=== PATIENT | female | born 1930 | race Caucasian/White ===

== ENCOUNTER 2016-07-20 17:52 | Inpatient (IN) | payer MEDICARE ==
[~2016-07-20] VITALS: Ht 162.6 cm; Wt 57.2 kg
--- NOTE | 2016-07-20 18:38 | PHYS DOC ---
Past History Past Medical History: Diabetes Past Medical History CRF Past Surgical History: Hysterectomy, Pacemaker Smoking: Quit Greater Than 1 Year Social History Narrative: Lives at [facility] Adult General Chief Complaint Chief Complaint: PSYCH EVALUATION HPI HPI Patient is a 86 year old female who presents with anna-psych evaluation prior to admission. She became agitated there at the [facility] and was trying to leave. She presents here for medical clearance. She is here with her brother. She has no complaints presently and is pleasant and cooperative. Review of Systems Review of Systems Constitutional: Denies fever or chills Eyes: Denies change in visual acuity, redness, or eye pain HENT: Denies nasal congestion or sore throat Respiratory: Denies cough or shortness of breath Cardiovascular: No additional information not addressed in HPI. No chest pain GI: Denies abdominal pain, nausea, vomiting, bloody stools or diarrhea : Denies dysuria or hematuria Musculoskeletal: Denies back pain or joint pain Integument: Denies rash or skin lesions Neurologic: Denies headache, focal weakness or sensory changes Endocrine: Denies polyuria or polydipsia Physical Exam Physical Exam Constitutional: Well developed, well nourished, no acute distress, non-toxic appearance. HENT: Normocephalic, atraumatic, bilateral external ears normal, oropharynx moist, no oral exudates, nose normal. Eyes: PERRLA, EOMI, conjunctiva normal, no discharge. Neck: Normal range of motion, no tenderness, supple, no stridor. Cardiovascular:Heart rate regular rhythm, no murmur Lungs & Thorax: Bilateral breath sounds clear to auscultation Abdomen: Bowel sounds normal, soft, no tenderness, no masses, no pulsatile masses. Skin: Warm, dry, no erythema, no rash. Back: No tenderness, no CVA tenderness. Extremities: No tenderness, no cyanosis, no clubbing, ROM intact, no edema. Neurologic: Alert and oriented X 3, normal motor function, normal sensory function, no focal deficits noted. Psychologic: Affect normal, judgement normal, mood normal. Pleasant and cooperative Current Patient Data Vital Signs Vital Signs Date Time Temp Pulse Resp B/P (MAP) Pulse Ox O2 Delivery O2 Flow Rate FiO2 07/20/16 21:15 98.2 82 20 169/65 (99) 97 07/20/16 20:50 Room Air Lab Results Laboratory Tests Test 07/20/16 18:05 07/20/16 19:10 Urine Collection Type Unknown Urine Color Yellow Urine Clarity Hazy Urine pH 7.0 Urine Specific [place] 1.020 Urine Protein 30 mg/dl Urine Glucose (UA) 500 mg/dL Urine Ketones (Stick) Neg mg/dL Urine Blood Trace Urine Nitrite Neg Urine Bilirubin Neg Urine Urobilinogen Dipstick 2 mg/dL Urine Leukocyte Esterase Neg Urine RBC 3-5 /HPF Urine WBC 5-10 /HPF Urine Squamous Epithelial Cells Many /LPF Urine Bacteria 0 /HPF White Blood Count 5.1 x10^3/uL Red Blood Count 3.33 x10^6/uL Hemoglobin 9.3 g/dL Hematocrit 27.1 % Mean Corpuscular Volume 82 fL Mean Corpuscular Hemoglobin 28 pg Mean Corpuscular Hemoglobin Concent 35 g/dL Red Cell Distribution Width 13.9 % Platelet Count 174 x10^3/uL Neutrophils (%) (Auto) 60 % Lymphocytes (%) (Auto) 25 % Monocytes (%) (Auto) 12 % Eosinophils (%) (Auto) 3 % Basophils (%) (Auto) 1 % Neutrophils # (Auto) 3.0 x10^3uL Lymphocytes # (Auto) 1.3 x10^3/uL Monocytes # (Auto) 0.6 x10^3/uL Eosinophils # (Auto) 0.1 x10^3/uL Basophils # (Auto) 0.1 x10^3/uL Sodium Level 144 mmol/L Potassium Level 4.0 mmol/L Chloride Level 107 mmol/L Carbon Dioxide Level 27 mmol/L Anion Gap 10 Blood Urea Nitrogen 30 mg/dL Creatinine 1.5 mg/dL Estimated GFR (Cockcroft-Gault) 33.1 BUN/Creatinine Ratio 20 Glucose Level 214 mg/dL Calcium Level 8.8 mg/dL Magnesium Level 2.1 mg/dL Total Bilirubin 0.6 mg/dL Aspartate Amino Transf (AST/SGOT) 15 U/L Alanine Aminotransferase (ALT/SGPT) 20 U/L Alkaline Phosphatase 51 U/L Total Protein 7.2 g/dL Albumin 3.3 g/dL Albumin/Globulin Ratio 0.8 Course & Med Decision Making Course & Med Decision Making Pertinent Labs and Imaging studies reviewed. (See chart for details) Reviewed the laboratory data. There is no acute abnormality may be a factor in her behavioral issue. Patient is medically cleared for admission. Dragon Disclaimer Dragon Disclaimer This chart was dictated in whole or in part using Voice Recognition software in a busy, high-work load, and often noisy Emergency Department environment. It may contain unintended and wholly unrecognized errors or omissions. Departure Departure: Disposition: 65 XFER TO PSYCH HOSP/UNIT Condition: GOOD Referrals: NON,STAFF (PCP) MARILYN JARAMILLO MD July 20, 2016 18:38
[2016-07-20 19:02] LABS: BILIRUBIN,URINE NEG (NEG); CLARITY,URINE HAZY; COLOR,URINE YELLOW; GLUCOSE,URINE 500 mg/dL (NEG); NITRITE,URINE NEG (NEG); UROBILINOGEN,URINE 2 mg/dL (0.2 mg/dL)
[2016-07-20 19:03] LABS: BACTERIA,URINE 0 /HPF (0-FEW); SQUAMOUS EPITHELIAL CELL,UR MANY /LPF
[2016-07-20 19:23] LABS: BASO # 0.1 x10^3/uL (0.0-0.2); BASO % 1 % (0-3); EOS # 0.1 x10^3/uL (0.0-0.7); EOS % 3 % (0-3); HEMATOCRIT 27.1 % (36.0-47.0); HEMOGLOBIN 9.3 g/dL (12.0-15.5); LYMPH # 1.3 x10^3/uL (1.0-4.8); LYMPH % 25 % (24-48); MEAN CORPUSCULAR HEMOGLOBIN 28 pg (25-35); MEAN CORPUSCULAR HGB CONC 35 g/dL (31-37); MEAN CORPUSCULAR VOLUME 82 fL (79-100); MONO # 0.6 x10^3/uL (0.0-1.1); MONO % 12 % (0-9); NEUT % 60 % (31-73); PLATELET COUNT 174 x10^3/uL (140-400); RED BLOOD COUNT 3.33 x10^6/uL (3.50-5.40); RED CELL DISTRIBUTION WIDTH 13.9 % (11.5-14.5); WHITE BLOOD COUNT 5.1 x10^3/uL (4.0-11.0)
[2016-07-20 19:34] LABS: ALBUMIN 3.3 g/dL (3.4-5.0); ALBUMIN/GLOBULIN RATIO 0.8 (1.0-1.7); CALCIUM 8.8 mg/dL (8.5-10.1); CREATININE 1.5 mg/dL (0.6-1.0); GFR 33.1; MAGNESIUM 2.1 mg/dL (1.8-2.4); TOTAL BILIRUBIN 0.6 mg/dL (0.2-1.0); TOTAL PROTEIN 7.2 g/dL (6.4-8.2)
--- NOTE | 2016-07-20 21:01 | PDOC ---
Exam Saúl Demential Exam: Saúl Note: Please also refer to the separate dictated note~for this date of service dictated separately.~Patient seen individually. Discussed the patient with Nursing staff reviewed the chart.~Reviewed interim history and current functioning. Reviewed vital signs,~Labs/ Radiology~and current medications noted below. Continue current treatment with the changes noted in the dictated addendum note Assessment: Vital Signs: Vital Signs Date Time Temp Pulse Resp B/P (MAP) Pulse Ox O2 Delivery O2 Flow Rate FiO2 07/20/16 20:50 98.5 72 20 144/66 (92) 97 Room Air Labs: Laboratory Tests Test 07/20/16 18:05 07/20/16 19:10 Urine Collection Type Unknown Urine Color Yellow Urine Clarity Hazy Urine pH 7.0 Urine Specific [place] 1.020 Urine Protein 30 mg/dl (NEG-TRACE) Urine Glucose (UA) 500 mg/dL (NEG) Urine Ketones (Stick) Neg mg/dL (NEG) Urine Blood Trace (NEG) Urine Nitrite Neg (NEG) Urine Bilirubin Neg (NEG) Urine Urobilinogen Dipstick 2 mg/dL (0.2 mg/dL) Urine Leukocyte Esterase Neg (NEG) Urine RBC 3-5 /HPF (0-2) Urine WBC 5-10 /HPF (0-4) Urine Squamous Epithelial Cells Many /LPF Urine Bacteria 0 /HPF (0-FEW) White Blood Count 5.1 x10^3/uL (4.0-11.0) Red Blood Count 3.33 x10^6/uL (3.50-5.40) L Hemoglobin 9.3 g/dL (12.0-15.5) L Hematocrit 27.1 % (36.0-47.0) L Mean Corpuscular Volume 82 fL (79-100) Mean Corpuscular Hemoglobin 28 pg (25-35) Mean Corpuscular Hemoglobin Concent 35 g/dL (31-37) Red Cell Distribution Width 13.9 % (11.5-14.5) Platelet Count 174 x10^3/uL (140-400) Neutrophils (%) (Auto) 60 % (31-73) Lymphocytes (%) (Auto) 25 % (24-48) Monocytes (%) (Auto) 12 % (0-9) H Eosinophils (%) (Auto) 3 % (0-3) Basophils (%) (Auto) 1 % (0-3) Neutrophils # (Auto) 3.0 x10^3uL (1.8-7.7) Lymphocytes # (Auto) 1.3 x10^3/uL (1.0-4.8) Monocytes # (Auto) 0.6 x10^3/uL (0.0-1.1) Eosinophils # (Auto) 0.1 x10^3/uL (0.0-0.7) Basophils # (Auto) 0.1 x10^3/uL (0.0-0.2) Sodium Level 144 mmol/L (136-145) Potassium Level 4.0 mmol/L (3.5-5.1) Chloride Level 107 mmol/L (98-107) Carbon Dioxide Level 27 mmol/L (21-32) Anion Gap 10 (6-14) Blood Urea Nitrogen 30 mg/dL (7-20) H Creatinine 1.5 mg/dL (0.6-1.0) H Estimated GFR (Cockcroft-Gault) 33.1 BUN/Creatinine Ratio 20 (6-20) Glucose Level 214 mg/dL (70-99) H Calcium Level 8.8 mg/dL (8.5-10.1) Magnesium Level 2.1 mg/dL (1.8-2.4) Total Bilirubin 0.6 mg/dL (0.2-1.0) Aspartate Amino Transferase (AST) 15 U/L (15-37) Alanine Aminotransferase (ALT) 20 U/L (14-59) Alkaline Phosphatase 51 U/L (46-116) Total Protein 7.2 g/dL (6.4-8.2) Albumin 3.3 g/dL (3.4-5.0) L Albumin/Globulin Ratio 0.8 (1.0-1.7) L MAIKEL CHAPMAN MD July 20, 2016 21:01
[2016-07-20 21:15] VITALS: BP 169/65
[2016-07-20] MEDS ORDERED: MAG HYDROX/AL HYDROX/SIMETH 30 ML ORAL.SUSP PO PRN (21:45)
[2016-07-20] MEDS ORDERED: MAGNESIUM HYDROXIDE 2,400 MG/30 ML ORAL.SUSP. PO PRN (21:45)
[2016-07-20] MEDS ORDERED: ACETAMINOPHEN 325 MG TABLET PO PRN (21:45)
[2016-07-20] MEDS ORDERED: METHYL SALICYLATE/MENTHOL TOPICAL OINTMENT 29GM TUBE. TP PRN (21:45)
[2016-07-20] MEDS ORDERED: LISI10TA2 PO (21:58)
[2016-07-20] MEDS ORDERED: LORA0.5T PO (21:58)
[2016-07-20] MEDS ORDERED: AMLO10TA2 PO (21:58)
[2016-07-20] MEDS ORDERED: ACET325T9 PO (21:58)
[2016-07-20] MEDS ORDERED: QUET50TA5 PO (21:58)
[2016-07-20] MEDS ORDERED: RIVA3CAP4 PO (21:58)
[2016-07-21 05:51] VITALS: BP 137/58
--- NOTE | 2016-07-21 06:33 | EKG ---
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
[2016-07-21] MEDS ORDERED: ACETAMINOPHEN 325 MG TABLET PO PRN (07:45)
[2016-07-21] MEDS: LISINOPRIL 10 MG TABLET PO SCH (09:13)
[2016-07-21] MEDS: amLODIPine BESYLATE 10 MG TABLET PO SCH (09:13)
[2016-07-21] MEDS: RIVASTIGMINE 3 MG CAPSULE. PO SCH ×2 (09:13→20:21)
[2016-07-21 14:46] LABS: THYROID STIM HORMONE (TSH) 1.095 uIU/mL (0.358-3.740)
--- NOTE | 2016-07-21 15:06 | HP ---
ADMIT DATE: 07/20/2016 REASON FOR ADMISSION TO THE SENIOR BEHAVIORAL UNIT: This is an 86-year-old female, who came from [facility], where it is reported that she has had increased agitation, exit-seeking to go to [facility], taking things from other residents, throwing her at staff and stating her son was going to come up with a gun to kill them. Medication changes include increasing her Exelon and Seroquel and prescribing Ativan. PAST MEDICAL HISTORY: Hyperlipidemia, GERD, hypertension, Cárdenas esophagus, thrombocytopenia, pacemaker, dementia and type 2 diabetes. MEDICATIONS: Reviewed: Her Exelon was increased from 1.5 mg b.i.d. to 3 mg p.o. b.i.d., Seroquel was increased to 50 mg at bedtime from 25 and lorazepam was added on 07/15/2016 0.5 mg p.o. b.i.d. p.r.n. anxiety. Her other medications were reviewed as well. PERSONAL HABITS: Unknown. The patient stated that she did not have any information that I could need. SOCIAL HISTORY: Tobacco none and never smoked. REVIEW OF SYSTEMS: The patient basically answered no. OBJECTIVE: VITAL SIGNS: Blood pressure is 137/58, respirations 18, temperature 97.7 and O2 sat 98% on room air. Height 64 inches, weight 132.44 pounds. GENERAL: An 86-year-old, who is annoyed being with the interview. HEENT: Her TMs were intact bilaterally. Her pupils were equal, round, and reactive to light. Extraocular muscles are intact. Her nose was patent. Her throat was clear. Her tongue was midline without fasciculations. NECK: Supple, without adenopathy. LUNGS: Clear to auscultation. CARDIOVASCULAR: Regular rhythm and rate with a 1-2/6 systolic murmur heard in the pulmonic area. ABDOMEN: Soft, nontender. EXTREMITIES: Without edema. NEUROLOGIC: Cranial nerves were intact. Reflexes 2+/4. Gait, passes get get-up and go test. LABORATORY DATA: Hemoglobin 9.3, hematocrit 27.1. BUN is 30, creatinine is 1.5. Urinalysis is contaminated specimen. ASSESSMENT: 1. An 86-year-old with neurocognitive impairment. 2. Normochromic normocytic anemia. 3. Hypertension. 4. Hyperlipidemia. 5. Type 2 diabetes. 6. Pacemaker status. 7. Mild protein malnutrition. 8. Abnormal BUN and creatinine, unknown whether this is chronic kidney disease. PLAN: Follow along with Dr. Crain, repeat labs in a week. ISABELLA FATIMA DO DR: SHAYNA/slim JOB#: [id number] / [id number]
[2016-07-21] MEDS: LORazepam 0.5 MG TABLET PO PRN (15:41)
[2016-07-21 20:11] LABS: T3 TOTAL 105 ng/dL (71-180); THYROXINE 8.6 ug/dL (4.5-12.0)
[2016-07-21] MEDS: risperiDONE ORAL 1 MG/ML 30ml BOTTLE. SL SCH (20:21)
[2016-07-21] MEDS ORDERED: QUEtiapine 50 MG TABLET. PO SCH (21:00)
--- NOTE | 2016-07-21 21:03 | PDOC ---
Exam Saúl Demential Exam: Saúl Note: Please also refer to the separate dictated note~for this date of service dictated separately.~Patient seen individually. Discussed the patient with Nursing staff reviewed the chart.~Reviewed interim history and current functioning. Reviewed vital signs,~Labs/ Radiology~and current medications noted below. Continue current treatment with the changes noted in the dictated addendum note Assessment: Vital Signs: Vital Signs Date Time Temp Pulse Resp B/P (MAP) Pulse Ox O2 Delivery O2 Flow Rate FiO2 07/21/16 09:13 68 137/58 07/21/16 05:51 97.7 18 98 07/20/16 20:50 Room Air Current Medications: Meds: Current Medications Acetaminophen (Tylenol) 650 mg PRN Q6HRS PRN PO PAIN / TEMP; Start 07/20/16 at 21:45 Multi-Ingredient Ointment (Analgesic [place]) 1 swati PRN QID PRN TP MUSCLE PAIN; Start 07/20/16 at 21:45 Al Hydroxide/Mg Hydroxide (Mylanta Plus Xs) 15 ml PRN AFTMEALHC PRN PO DYSPEPSIA; Start 07/20/16 at 21:45 Magnesium Hydroxide (Milk Of Magnesia) 2,400 mg PRN QHS PRN PO CONSTIPATION; Start 07/20/16 at 21:45 Lorazepam (Ativan) 0.5 mg PRN BID PRN PO ANXIETY / AGITATION Last administered on 07/21/16 15:41; Start 07/20/16 at 22:15 Quetiapine Fumarate (SEROquel) 50 mg QHS PO ; Start 07/21/16 at 21:00; Stop at 21:00; Status DC Rivastigmine Tartrate (Exelon) 3 mg BID PO Last administered on 07/21/16 09:13 ; Start 07/21/16 at 09:00 Acetaminophen (Tylenol) 650 mg PRN Q4HRS PRN PO PAIN; Start 07/21/16 at 07:45; Stop 07/21/16 at 07:49; Status DC Amlodipine Besylate (Norvasc) 10 mg DAILY PO Last administered on 07/21/16 09: 13; Start 07/21/16 at 09:00 Lisinopril (Prinivil) 10 mg DAILY PO Last administered on 07/21/16 09:13; Start 07/21/16 at 09:00 Sertraline HCl (Zoloft) 25 mg DAILY PO ; Start 07/22/16 at 09:00 Risperidone (Risperdal) 0.25 mg BID SL Last administered on 07/21/16 20:21; Start 07/21/16 at 21:00 Olanzapine (Zyprexa Zydis) 2.5 mg PRN Q2HR PRN PO ANXIETY / AGITATION; Start at 18:15 Active Scripts Active Reported Lorazepam 0.5 Mg Tablet 0.5 Mg PO PRN BID Tylenol (Acetaminophen) 325 Mg Tablet 650 Mg PO PRN Q4HRS PRN Amlodipine Besylate 10 Mg Tablet 10 Mg PO DAILY Lisinopril 10 Mg Tablet 10 Mg PO DAILY Seroquel (Quetiapine Fumarate) 50 Mg Tablet 50 Mg PO QHS Rivastigmine (Rivastigmine Tartrate) 3 Mg Capsule 3 Mg PO BID MAIKEL CHAPMAN MD July 21, 2016 21:03
[2016-07-22 06:06] VITALS: BP 129/64
[2016-07-22 06:09] LABS: HEMOGLOBIN A1C 6.5 % (4.8-5.6)
[2016-07-22] MEDS: amLODIPine BESYLATE 10 MG TABLET PO SCH (08:28)
[2016-07-22] MEDS: LISINOPRIL 10 MG TABLET PO SCH (08:28)
[2016-07-22] MEDS: RIVASTIGMINE 3 MG CAPSULE. PO SCH ×2 (09:26→20:39)
[2016-07-22] MEDS: SERTRALINE 25 MG TABLET. PO SCH (09:33)
[2016-07-22] MEDS: risperiDONE ORAL 1 MG/ML 30ml BOTTLE. SL SCH ×2 (09:34→19:15)
--- NOTE | 2016-07-22 10:55 | HP ---
ADMIT DATE: 07/21/2016 PSYCHIATRIC ADMISSION HISTORY/EVALUATION IDENTIFYING DATA: The patient is an 86-year-old female referred from [place], [place] by Dr. Danica Bragg, primary care physician. On account of worsening confusion, increased agitation, exit seeking from the assisted living wanting to get back to [place]. She has been taking things from other residents through a jacket and the staff member threatening that her sons will bring a gun and kill people. Multiple changes in her psychotropic medications including increase of Exelon and increase of Seroquel, addition of Ativan have all failed to control the behaviors, which were deemed dangerous, out of control at the assisted living thus resulting in this referral. CHIEF COMPLAINT: "Did you buy this place. I own this place now. I don't want to have anything to do with you." The patient was agitated, restless, constantly walking up and down the hallway as I followed her as part of the assessment. HISTORY OF PRESENT ILLNESS: The patient has a history of dementia, Alzheimer's vascular type. Despite this, she has been reasonably cognitively intact to be staying at hospital for special care. More recently, she has been increasingly psychotic, having sleep and appetite changes, agitated. Reportedly, she had been living in [place] with her , who in March of this year and then she transferred to [facility]. The Memorial ceremony for her was last week and since then her behaviors and confusion have worsened markedly. In addition to the above she has been argumentative, trying to pore water on staff members, cursing at staff. No clear symptoms of bipolar disorder, suicidal or homicidal ideation. While on the unit, she has been sundowning, sarcastic, combative in the [facility] where she had to be placed for a period of time to reduce stimulation from other patients. PAST PSYCHIATRIC HISTORY: As above. MEDICAL HISTORY: Hyperlipidemia, hypertension, GERD, Cárdenas's esophagus, thrombocytopenia, pacemaker in place, diabetes mellitus type 2, Accu-Cheks a.c. and at bedtime Wednesday, Wednesday, Wednesday. Diet: Regular, ambulates ad didi. DRUG ALLERGIES: Negative. CURRENT PSYCHOTROPICS: Exelon 3 mg b.i.d., Seroquel 50 mg at bedtime, Ativan 0.5 b.i.d. p.r.n. FAMILY HISTORY: Noncontributory. SOCIAL HISTORY: The patient's in March of this year. No alcohol, drug abuse, physical, sexual or elder abuse history is noted. She is not known to be a perpetrator. MENTAL STATUS EXAMINATION: The patient was seen individually evening of 07/21/2016. She is oriented to herself, anxious, restless, paranoid, delusional, irritable, labile as I met with her. Insight, judgment, recent and remote memory, attention, concentration, fund of knowledge poor, consistent with her diagnoses mentioned in my initial note. VITAL SIGNS: Temperature 97.7, BP , respirations 18. REVIEW OF SYSTEMS: No CV, , eye, ENT or pulmonary system symptoms on review. Reliability poor. IMPRESSION: Major neurocognitive disorder, Alzheimer, vascular with depression, delusion, behavioral disturbance; anxiety disorder, unspecified; impulse control disorder, unspecified. Rest diagnoses unchanged as above. UA was completed . Culture and sensitivity is pending. PLAN: Admit to the geropsychiatry unit at [facility]. I will see the patient daily individually from a psychiatric standpoint. Request medical followup with Dr. Reddy/Dr. Gonzalez. Await UA culture and sensitivity, treat as indicated. Continue the patient on her current psychotropics, but given the extent of her delusions we will change the Seroquel to Risperdal liquid 0.25 mg twice a day and add Zyprexa 2.5 mg q.2 hours p.r.n. psychosis, agitation, max 7.5 in 24 hours. Maintain Exelon along with Ativan p.r.n. for now. MAIKEL CHAPMAN MD DR: ARLINE/slim JOB#: [id number] / [id number]
[2016-07-22 16:07] VITALS: BP 154/76
--- NOTE | 2016-07-22 20:35 | PDOC ---
Exam Saúl Demential Exam: Saúl Note: Please also refer to the separate dictated note~for this date of service dictated separately.~Patient seen individually. Discussed the patient with Nursing staff reviewed the chart.~Reviewed interim history and current functioning. Reviewed vital signs,~Labs/ Radiology~and current medications noted below. Continue current treatment with the changes noted in the dictated addendum note Assessment: Vital Signs: Vital Signs Date Time Temp Pulse Resp B/P (MAP) Pulse Ox O2 Delivery O2 Flow Rate FiO2 07/22/16 16:07 97.9 79 16 154/76 (102) 99 07/20/16 20:50 Room Air I&O Intake and Output 07/22/16 07:00 Intake Total 600 ml Balance 600 ml Intake Oral 600 ml Labs: Laboratory Tests Test 07/22/16 07:39 07/22/16 11:28 Glucose (Fingerstick) 134 mg/dL (70-99) H 248 mg/dL (70-99) H Current Medications: Meds: Current Medications Acetaminophen (Tylenol) 650 mg PRN Q6HRS PRN PO PAIN / TEMP; Start 07/20/16 at 21:45 Multi-Ingredient Ointment (Analgesic [place]) 1 swati PRN QID PRN TP MUSCLE PAIN; Start 07/20/16 at 21:45 Al Hydroxide/Mg Hydroxide (Mylanta Plus Xs) 15 ml PRN AFTMEALHC PRN PO DYSPEPSIA; Start 07/20/16 at 21:45 Magnesium Hydroxide (Milk Of Magnesia) 2,400 mg PRN QHS PRN PO CONSTIPATION; Start 07/20/16 at 21:45 Lorazepam (Ativan) 0.5 mg PRN BID PRN PO ANXIETY / AGITATION Last administered on 07/21/16 15:41; Start 07/20/16 at 22:15 Quetiapine Fumarate (SEROquel) 50 mg QHS PO ; Start 07/21/16 at 21:00; Stop at 21:00; Status DC Rivastigmine Tartrate (Exelon) 3 mg BID PO Last administered on 07/22/16 09:26 ; Start 07/21/16 at 09:00 Acetaminophen (Tylenol) 650 mg PRN Q4HRS PRN PO PAIN; Start 07/21/16 at 07:45; Stop 07/21/16 at 07:49; Status DC Amlodipine Besylate (Norvasc) 10 mg DAILY PO Last administered on 07/21/16 09: 13; Start 07/21/16 at 09:00 Lisinopril (Prinivil) 10 mg DAILY PO Last administered on 07/21/16 09:13; Start 07/21/16 at 09:00 Sertraline HCl (Zoloft) 25 mg DAILY PO Last administered on 07/22/16 09:33; Start 07/22/16 at 09:00 Risperidone (Risperdal) 0.25 mg BID SL Last administered on 07/22/16 19:15; Start 07/21/16 at 21:00 Olanzapine (Zyprexa Zydis) 2.5 mg PRN Q2HR PRN PO ANXIETY / AGITATION Last administered on 07/22/16 19:13; Start 07/21/16 at 18:15 Mirtazapine (Remeron) 7.5 mg QHS PO ; Start 07/22/16 at 21:00 Active Scripts Active Reported Lorazepam 0.5 Mg Tablet 0.5 Mg PO PRN BID Tylenol (Acetaminophen) 325 Mg Tablet 650 Mg PO PRN Q4HRS PRN Amlodipine Besylate 10 Mg Tablet 10 Mg PO DAILY Lisinopril 10 Mg Tablet 10 Mg PO DAILY Seroquel (Quetiapine Fumarate) 50 Mg Tablet 50 Mg PO QHS Rivastigmine (Rivastigmine Tartrate) 3 Mg Capsule 3 Mg PO BID MAIKEL CHAPMAN MD July 22, 2016 20:35
[2016-07-22] MEDS ORDERED: MIRTAZAPINE 7.5 MG TABLET. PO SCH (21:00)
[2016-07-23 05:46] VITALS: BP 152/72
[2016-07-23] MEDS: RIVASTIGMINE 3 MG CAPSULE. PO SCH ×2 (09:40→19:37)
[2016-07-23] MEDS: SERTRALINE 25 MG TABLET. PO SCH (09:40)
[2016-07-23] MEDS: amLODIPine BESYLATE 10 MG TABLET PO SCH (09:40)
[2016-07-23] MEDS: LISINOPRIL 10 MG TABLET PO SCH (09:40)
[2016-07-23] MEDS: risperiDONE ORAL 1 MG/ML 30ml BOTTLE. SL SCH ×2 (09:42→19:38)
[2016-07-23 15:47] VITALS: BP 120/56
[2016-07-23] MEDS: LORazepam 0.5 MG TABLET PO PRN (17:26)
[2016-07-23] MEDS: MIRTAZAPINE 15 MG TABLET PO SCH (19:41)
[2016-07-23] MEDS: traZODone 50 MG TABLET. PO PRN (19:41)
--- NOTE | 2016-07-23 21:01 | PDOC ---
Exam Saúl Demential Exam: Saúl Note: Please also refer to the separate dictated note~for this date of service dictated separately.~Patient seen individually. Discussed the patient with Nursing staff reviewed the chart.~Reviewed interim history and current functioning. Reviewed vital signs,~Labs/ Radiology~and current medications noted below. Continue current treatment with the changes noted in the dictated addendum note Assessment: Vital Signs: Vital Signs Date Time Temp Pulse Resp B/P (MAP) Pulse Ox O2 Delivery O2 Flow Rate FiO2 07/23/16 15:47 98.1 88 20 120/56 (77) 98 07/20/16 20:50 Room Air I&O Intake and Output 07/23/16 07:00 Intake Total 1080 ml Balance 1080 ml Intake Oral 1080 ml # Voids 2 Labs: Laboratory Tests Test 07/23/16 07:07 Glucose (Fingerstick) 169 mg/dL (70-99) H Current Medications: Meds: Current Medications Acetaminophen (Tylenol) 650 mg PRN Q6HRS PRN PO PAIN / TEMP; Start 07/20/16 at 21:45 Multi-Ingredient Ointment (Analgesic [place]) 1 swati PRN QID PRN TP MUSCLE PAIN; Start 07/20/16 at 21:45 Al Hydroxide/Mg Hydroxide (Mylanta Plus Xs) 15 ml PRN AFTMEALHC PRN PO DYSPEPSIA; Start 07/20/16 at 21:45 Magnesium Hydroxide (Milk Of Magnesia) 2,400 mg PRN QHS PRN PO CONSTIPATION; Start 07/20/16 at 21:45 Lorazepam (Ativan) 0.5 mg PRN BID PRN PO ANXIETY / AGITATION Last administered on 07/23/16 17:26; Start 07/20/16 at 22:15 Quetiapine Fumarate (SEROquel) 50 mg QHS PO ; Start 07/21/16 at 21:00; Stop at 21:00; Status DC Rivastigmine Tartrate (Exelon) 3 mg BID PO Last administered on 07/23/16 19:37 ; Start 07/21/16 at 09:00 Acetaminophen (Tylenol) 650 mg PRN Q4HRS PRN PO PAIN; Start 07/21/16 at 07:45; Stop 07/21/16 at 07:49; Status DC Amlodipine Besylate (Norvasc) 10 mg DAILY PO Last administered on 07/23/16 09: 40; Start 07/21/16 at 09:00 Lisinopril (Prinivil) 10 mg DAILY PO Last administered on 07/23/16 09:40; Start 07/21/16 at 09:00 Sertraline HCl (Zoloft) 25 mg DAILY PO Last administered on 07/23/16 09:40; Start 07/22/16 at 09:00 Risperidone (Risperdal) 0.25 mg BID SL Last administered on 07/23/16 19:38; Start 07/21/16 at 21:00 Olanzapine (Zyprexa Zydis) 2.5 mg PRN Q2HR PRN PO ANXIETY / AGITATION Last administered on 07/23/16 09:42; Start 07/21/16 at 18:15 Mirtazapine (Remeron) 7.5 mg QHS PO Last administered on 07/22/16 20:39; Start 07/22/16 at 21:00; Stop 07/23/16 at 10:37; Status DC Mirtazapine (Remeron) 15 mg QHS PO Last administered on 07/23/16 19:41; Start 07/23/16 at 21:00 Trazodone HCl (Desyrel) 50 mg PRN QHS PRN PO INSOMNIA, MAY REPEAT X1 Last administered on 07/23/16 19:41; Start 07/23/16 at 10:45 Active Scripts Active Reported Lorazepam 0.5 Mg Tablet 0.5 Mg PO PRN BID Tylenol (Acetaminophen) 325 Mg Tablet 650 Mg PO PRN Q4HRS PRN Amlodipine Besylate 10 Mg Tablet 10 Mg PO DAILY Lisinopril 10 Mg Tablet 10 Mg PO DAILY Seroquel (Quetiapine Fumarate) 50 Mg Tablet 50 Mg PO QHS Rivastigmine (Rivastigmine Tartrate) 3 Mg Capsule 3 Mg PO BID MAIKEL CHAPMAN MD July 23, 2016 21:01
[2016-07-24 06:45] VITALS: BP 141/62
[2016-07-24] MEDS: RIVASTIGMINE 3 MG CAPSULE. PO SCH ×2 (07:43→19:35)
[2016-07-24] MEDS: amLODIPine BESYLATE 10 MG TABLET PO SCH (07:44)
[2016-07-24] MEDS: SERTRALINE 25 MG TABLET. PO SCH (07:44)
[2016-07-24] MEDS: LISINOPRIL 10 MG TABLET PO SCH (07:44)
[2016-07-24] MEDS: risperiDONE ORAL 1 MG/ML 30ml BOTTLE. SL SCH ×2 (07:45→19:36)
[2016-07-24 16:18] VITALS: BP 152/62
[2016-07-24] MEDS: MIRTAZAPINE 15 MG TABLET PO SCH (19:35)
--- NOTE | 2016-07-24 21:04 | PDOC ---
Exam Saúl Demential Exam: Saúl Note: Please also refer to the separate dictated note~for this date of service dictated separately.~Patient seen individually. Discussed the patient with Nursing staff reviewed the chart.~Reviewed interim history and current functioning. Reviewed vital signs,~Labs/ Radiology~and current medications noted below. Continue current treatment with the changes noted in the dictated addendum note Assessment: Vital Signs: Vital Signs Date Time Temp Pulse Resp B/P (MAP) Pulse Ox O2 Delivery O2 Flow Rate FiO2 07/24/16 16:18 97.8 70 20 152/62 (92) 96 07/24/16 06:45 Room Air I&O Intake and Output 07/24/16 07:00 Intake Total 1080 ml Balance 1080 ml Intake Oral 1080 ml Labs: Laboratory Tests Test 07/24/16 07:44 Glucose (Fingerstick) 144 mg/dL (70-99) H Current Medications: Meds: Current Medications Acetaminophen (Tylenol) 650 mg PRN Q6HRS PRN PO PAIN / TEMP; Start 07/20/16 at 21:45 Multi-Ingredient Ointment (Analgesic [place]) 1 swati PRN QID PRN TP MUSCLE PAIN; Start 07/20/16 at 21:45 Al Hydroxide/Mg Hydroxide (Mylanta Plus Xs) 15 ml PRN AFTMEALHC PRN PO DYSPEPSIA; Start 07/20/16 at 21:45 Magnesium Hydroxide (Milk Of Magnesia) 2,400 mg PRN QHS PRN PO CONSTIPATION; Start 07/20/16 at 21:45 Lorazepam (Ativan) 0.5 mg PRN BID PRN PO ANXIETY / AGITATION Last administered on 07/23/16 17:26; Start 07/20/16 at 22:15 Quetiapine Fumarate (SEROquel) 50 mg QHS PO ; Start 07/21/16 at 21:00; Stop at 21:00; Status DC Rivastigmine Tartrate (Exelon) 3 mg BID PO Last administered on 07/24/16 19:35 ; Start 07/21/16 at 09:00 Acetaminophen (Tylenol) 650 mg PRN Q4HRS PRN PO PAIN; Start 07/21/16 at 07:45; Stop 07/21/16 at 07:49; Status DC Amlodipine Besylate (Norvasc) 10 mg DAILY PO Last administered on 07/24/16 07: 44; Start 07/21/16 at 09:00 Lisinopril (Prinivil) 10 mg DAILY PO Last administered on 07/24/16 07:44; Start 07/21/16 at 09:00 Sertraline HCl (Zoloft) 25 mg DAILY PO Last administered on 07/24/16 07:44; Start 07/22/16 at 09:00 Risperidone (Risperdal) 0.25 mg BID SL Last administered on 07/24/16 19:36; Start 07/21/16 at 21:00 Olanzapine (Zyprexa Zydis) 2.5 mg PRN Q2HR PRN PO ANXIETY / AGITATION Last administered on 07/23/16 09:42; Start 07/21/16 at 18:15 Mirtazapine (Remeron) 7.5 mg QHS PO Last administered on 07/22/16 20:39; Start 07/22/16 at 21:00; Stop 07/23/16 at 10:37; Status DC Mirtazapine (Remeron) 15 mg QHS PO Last administered on 07/24/16 19:35; Start 07/23/16 at 21:00 Trazodone HCl (Desyrel) 50 mg PRN QHS PRN PO INSOMNIA, MAY REPEAT X1 Last administered on 07/23/16 19:41; Start 07/23/16 at 10:45 Active Scripts Active Reported Lorazepam 0.5 Mg Tablet 0.5 Mg PO PRN BID Tylenol (Acetaminophen) 325 Mg Tablet 650 Mg PO PRN Q4HRS PRN Amlodipine Besylate 10 Mg Tablet 10 Mg PO DAILY Lisinopril 10 Mg Tablet 10 Mg PO DAILY Seroquel (Quetiapine Fumarate) 50 Mg Tablet 50 Mg PO QHS Rivastigmine (Rivastigmine Tartrate) 3 Mg Capsule 3 Mg PO BID MAIKEL CHAPMAN MD July 24, 2016 21:04
--- NOTE | 2016-07-25 00:13 | PN ---
DATE: 07/22/2016 PSYCHIATRIC PROGRESS NOTE This is a late entry of 07/22/2016 covers elements not covered in my initial note. SUBJECTIVE: The patient slept about 2 hours previous night, very restless, agitated, aggressive, and labile the previous evening, wandering, refusing medications, combative in the morning, refused blood sugars. 3 staff members had to hold her, refused her breakfast, tried to hit staff. Morning of 07/22/2016 received Zyprexsheryl Awan 8:30 a.m. later had breakfast ____ wanting her . REVIEW OF SYSTEMS: No CV, , pulmonary, eye, ENT system symptoms on review. Reliability poor. MENTAL STATUS EXAM: Oriented to herself. Insight, judgment, recent and remote memory, attention, concentration, fund of knowledge poor, consistent with her diagnosis mentioned in my initial note. PLAN: Continue current psychotropics mentioned in my initial note. Add Remeron 7.5 at bedtime. MAN Patrice CHAPMAN MD DR: ARLINE/slim JOB#: [id number] / [id number]
--- NOTE | 2016-07-25 00:15 | PN ---
DATE: 07/23/2016 PSYCHIATRIC PROGRESS NOTE This is a late entry of 07/23/2016 covers elements not covered in my initial note. SUBJECTIVE: The patient was staffed at a treatment team meeting with the entire team morning of 07/23/2016. Seen individually evening of 07/23/2016 slept quarter hours. Appetite 75%, sarcastic threatening staff at times. Received Zyprexa twice noncompliant, exit seeking looking for her children, calm down after the second dose of Zyprexa and remained awake at night up all night. REVIEW OF SYSTEMS: No CV, , eye, ENT or pulmonary system symptoms on review. Reliability poor. MENTAL STATUS EXAM: Oriented to herself. Insight, judgment, recent and remote memory, attention, concentration, fund of knowledge poor, consistent with her diagnosis. The patient is trying to open the exit door to the outside [facility] LABORATORY DATA: Reviewed. IMPRESSION: Unchanged from initial note. PLAN: Increase Remeron to 15 mg at bedtime, start trazodone 50 at bedtime, may repeat x 1. Maintain the rest of psychotropics. Adjust as indicated. MAN Patrice CHAPMAN MD DR: ARLINE/slim JOB#: [id number] / [id number]
[2016-07-25 06:00] VITALS: BP 147/60
[2016-07-25] MEDS: RIVASTIGMINE 3 MG CAPSULE. PO SCH ×2 (08:40→19:23)
[2016-07-25] MEDS: amLODIPine BESYLATE 10 MG TABLET PO SCH (08:41)
[2016-07-25] MEDS: LISINOPRIL 10 MG TABLET PO SCH (08:43)
[2016-07-25] MEDS: SERTRALINE 25 MG TABLET. PO SCH (08:43)
[2016-07-25] MEDS: risperiDONE ORAL 1 MG/ML 30ml BOTTLE. SL SCH ×2 (08:45→19:23)
[2016-07-25 11:27] LABS: BASO # 0.1 x10^3/uL (0.0-0.2); BASO % 1 % (0-3); EOS # 0.1 x10^3/uL (0.0-0.7); EOS % 2 % (0-3); HEMOGLOBIN 9.3 g/dL (12.0-15.5); LYMPH # 0.9 x10^3/uL (1.0-4.8); LYMPH % 18 % (24-48); MEAN CORPUSCULAR HEMOGLOBIN 28 pg (25-35); MEAN CORPUSCULAR HGB CONC 35 g/dL (31-37); MEAN CORPUSCULAR VOLUME 82 fL (79-100); MONO # 0.5 x10^3/uL (0.0-1.1); MONO % 10 % (0-9); NEUT # 3.4 x10^3uL (1.8-7.7); NEUT % 68 % (31-73); PLATELET COUNT 182 x10^3/uL (140-400); RED BLOOD COUNT 3.31 x10^6/uL (3.50-5.40); RED CELL DISTRIBUTION WIDTH 13.8 % (11.5-14.5)
[2016-07-25] MEDS ORDERED: CYANOCOBALAMIN (VITAMIN B-12) 1,000 MCG/ML VIAL IM SCH (11:30)
[2016-07-25 11:42] LABS: ALBUMIN 3.3 g/dL (3.4-5.0); ALBUMIN/GLOBULIN RATIO 0.8 (1.0-1.7); CALCIUM 8.9 mg/dL (8.5-10.1); CREATININE 1.2 mg/dL (0.6-1.0); GFR 42.8; MAGNESIUM 2.2 mg/dL (1.8-2.4); POTASSIUM 4.1 mmol/L (3.5-5.1); TOTAL BILIRUBIN 0.5 mg/dL (0.2-1.0); TOTAL PROTEIN 7.4 g/dL (6.4-8.2)
[2016-07-25] MEDS: CHOLECALCIFEROL (VITAMIN D3) 1,000 UNIT TABLET PO SCH ×2 (13:51→16:51)
[2016-07-25 16:28] VITALS: BP 136/69
[2016-07-25] MEDS: PRENATAL MULTIVITAMIN TABLET. PO SCH (16:51)
[2016-07-25] MEDS: MIRTAZAPINE 15 MG TABLET PO SCH (19:23)
--- NOTE | 2016-07-25 20:49 | PDOC ---
Exam Saúl Demential Exam: Saúl Note: Please also refer to the separate dictated note~for this date of service dictated separately.~Patient seen individually. Discussed the patient with Nursing staff reviewed the chart.~Reviewed interim history and current functioning. Reviewed vital signs,~Labs/ Radiology~and current medications noted below. Continue current treatment with the changes noted in the dictated addendum note Assessment: Vital Signs: Vital Signs Date Time Temp Pulse Resp B/P (MAP) Pulse Ox O2 Delivery O2 Flow Rate FiO2 07/25/16 16:28 97.8 78 18 136/69 (91) 100 07/24/16 06:45 Room Air I&O Intake and Output 07/25/16 07:00 Intake Total 960 ml Balance 960 ml Intake Oral 960 ml Labs: Laboratory Tests Test 07/25/16 11:13 White Blood Count 5.0 x10^3/uL (4.0-11.0) Red Blood Count 3.31 x10^6/uL (3.50-5.40) L Hemoglobin 9.3 g/dL (12.0-15.5) L Hematocrit 27.0 % (36.0-47.0) L Mean Corpuscular Volume 82 fL (79-100) Mean Corpuscular Hemoglobin 28 pg (25-35) Mean Corpuscular Hemoglobin Concent 35 g/dL (31-37) Red Cell Distribution Width 13.8 % (11.5-14.5) Platelet Count 182 x10^3/uL (140-400) Neutrophils (%) (Auto) 68 % (31-73) Lymphocytes (%) (Auto) 18 % (24-48) L Monocytes (%) (Auto) 10 % (0-9) H Eosinophils (%) (Auto) 2 % (0-3) Basophils (%) (Auto) 1 % (0-3) Neutrophils # (Auto) 3.4 x10^3uL (1.8-7.7) Lymphocytes # (Auto) 0.9 x10^3/uL (1.0-4.8) L Monocytes # (Auto) 0.5 x10^3/uL (0.0-1.1) Eosinophils # (Auto) 0.1 x10^3/uL (0.0-0.7) Basophils # (Auto) 0.1 x10^3/uL (0.0-0.2) Sodium Level 142 mmol/L (136-145) Potassium Level 4.1 mmol/L (3.5-5.1) Chloride Level 106 mmol/L (98-107) Carbon Dioxide Level 27 mmol/L (21-32) Anion Gap 9 (6-14) Blood Urea Nitrogen 36 mg/dL (7-20) H Creatinine 1.2 mg/dL (0.6-1.0) H Estimated GFR (Cockcroft-Gault) 42.8 BUN/Creatinine Ratio 30 (6-20) H Glucose Level 305 mg/dL (70-99) H Calcium Level 8.9 mg/dL (8.5-10.1) Magnesium Level 2.2 mg/dL (1.8-2.4) Total Bilirubin 0.5 mg/dL (0.2-1.0) Aspartate Amino Transferase (AST) 17 U/L (15-37) Alanine Aminotransferase (ALT) 19 U/L (14-59) Alkaline Phosphatase 59 U/L (46-116) Total Protein 7.4 g/dL (6.4-8.2) Albumin 3.3 g/dL (3.4-5.0) L Albumin/Globulin Ratio 0.8 (1.0-1.7) L Current Medications: Meds: Current Medications Acetaminophen (Tylenol) 650 mg PRN Q6HRS PRN PO PAIN / TEMP; Start 07/20/16 at 21:45 Multi-Ingredient Ointment (Analgesic [place]) 1 swati PRN QID PRN TP MUSCLE PAIN; Start 07/20/16 at 21:45 Al Hydroxide/Mg Hydroxide (Mylanta Plus Xs) 15 ml PRN AFTMEALHC PRN PO DYSPEPSIA; Start 07/20/16 at 21:45 Magnesium Hydroxide (Milk Of Magnesia) 2,400 mg PRN QHS PRN PO CONSTIPATION; Start 07/20/16 at 21:45 Lorazepam (Ativan) 0.5 mg PRN BID PRN PO ANXIETY / AGITATION Last administered on 07/23/16t 17:26; Start 07/20/16 at 22:15 Quetiapine Fumarate (SEROquel) 50 mg QHS PO ; Start 07/21/16 at 21:00; Stop at 21:00; Status DC Rivastigmine Tartrate (Exelon) 3 mg BID PO Last administered on 07/25/16 08:40 ; Start 07/21/16 at 09:00 Acetaminophen (Tylenol) 650 mg PRN Q4HRS PRN PO PAIN; Start 07/21/16 at 07:45; Stop 07/21/16 at 07:49; Status DC Amlodipine Besylate (Norvasc) 10 mg DAILY PO Last administered on 07/25/16 08: 41; Start 07/21/16 at 09:00 Lisinopril (Prinivil) 10 mg DAILY PO Last administered on 07/25/16 08:43; Start 07/21/16 at 09:00 Sertraline HCl (Zoloft) 25 mg DAILY PO Last administered on 07/25/16 08:43; Start 07/22/16 at 09:00 Risperidone (Risperdal) 0.25 mg BID SL Last administered on 07/25/16 08:45; Start 07/21/16 at 21:00 Olanzapine (Zyprexa Zydis) 2.5 mg PRN Q2HR PRN PO ANXIETY / AGITATION Last administered on 07/23/16 09:42; Start 07/21/16 at 18:15 Mirtazapine (Remeron) 7.5 mg QHS PO Last administered on 07/22/16 20:39; Start 07/22/16 at 21:00; Stop 07/23/16 at 10:37; Status DC Mirtazapine (Remeron) 15 mg QHS PO Last administered on 07/24/16 19:35; Start 07/23/16 at 21:00 Trazodone HCl (Desyrel) 50 mg PRN QHS PRN PO INSOMNIA, MAY REPEAT X1 Last administered on 07/23/16 19:41; Start 07/23/16 at 10:45 Prenat Multivit/ [place]/Iron/Folic Ac (Multivitamin ) 1 tab DAILYBFRSUP PO ; Start 07/25/16 at 17:00 Cyanocobalamin (Vitamin B-12) 1,000 mcg [id number] IM Last administered on 13:51; Start 07/25/16 at 11:30 Vitamin D (Vitamin D3) 2,000 unit BIDACLD PO Last administered on 5/20/17at 13: 51; Start 07/25/16 at 11:30 Active Scripts Active Reported Lorazepam 0.5 Mg Tablet 0.5 Mg PO PRN BID Tylenol (Acetaminophen) 325 Mg Tablet 650 Mg PO PRN Q4HRS PRN Amlodipine Besylate 10 Mg Tablet 10 Mg PO DAILY Lisinopril 10 Mg Tablet 10 Mg PO DAILY Seroquel (Quetiapine Fumarate) 50 Mg Tablet 50 Mg PO QHS Rivastigmine (Rivastigmine Tartrate) 3 Mg Capsule 3 Mg PO BID Diagnosis: Problems: (1) Agitation MAIKEL CHAPMAN MD July 25, 2016 20:49
[2016-07-26 06:38] VITALS: BP 156/75
[2016-07-26] MEDS: amLODIPine BESYLATE 10 MG TABLET PO SCH (08:14)
[2016-07-26] MEDS: RIVASTIGMINE 3 MG CAPSULE. PO SCH ×2 (08:14→18:30)
[2016-07-26] MEDS: LISINOPRIL 10 MG TABLET PO SCH (08:15)
[2016-07-26] MEDS: SERTRALINE 25 MG TABLET. PO SCH (08:15)
[2016-07-26] MEDS: risperiDONE ORAL 1 MG/ML 30ml BOTTLE. SL SCH ×2 (08:15→18:31)
[2016-07-26] MEDS: CHOLECALCIFEROL (VITAMIN D3) 1,000 UNIT TABLET PO SCH ×2 (12:10→15:46)
[2016-07-26] MEDS: PRENATAL MULTIVITAMIN TABLET. PO SCH (15:45)
[2016-07-26 16:06] VITALS: BP 142/67
[2016-07-26] MEDS: MIRTAZAPINE 15 MG TABLET PO SCH (18:30)
--- NOTE | 2016-07-26 19:41 | PDOC ---
Exam Saúl Demential Exam: Saúl Note: Please also refer to the separate dictated note~for this date of service dictated separately.~Patient seen individually. Discussed the patient with Nursing staff reviewed the chart.~Reviewed interim history and current functioning. Reviewed vital signs,~Labs/ Radiology~and current medications noted below. Continue current treatment with the changes noted in the dictated addendum note Assessment: Vital Signs: Vital Signs Date Time Temp Pulse Resp B/P (MAP) Pulse Ox O2 Delivery O2 Flow Rate FiO2 07/26/16 16:06 98.1 81 20 142/67 (92) 99 07/24/16 06:45 Room Air I&O Intake and Output 07/26/16 07:00 Intake Total 540 ml Balance 540 ml Intake Oral 540 ml # Bowel Movements 2 Current Medications: Meds: Current Medications Acetaminophen (Tylenol) 650 mg PRN Q6HRS PRN PO PAIN / TEMP; Start 07/20/16 at 21:45 Multi-Ingredient Ointment (Analgesic [place]) 1 swati PRN QID PRN TP MUSCLE PAIN; Start 07/20/16 at 21:45 Al Hydroxide/Mg Hydroxide (Mylanta Plus Xs) 15 ml PRN AFTMEALHC PRN PO DYSPEPSIA; Start 07/20/16 at 21:45 Magnesium Hydroxide (Milk Of Magnesia) 2,400 mg PRN QHS PRN PO CONSTIPATION; Start 07/20/16 at 21:45 Lorazepam (Ativan) 0.5 mg PRN BID PRN PO ANXIETY / AGITATION Last administered on 07/23/16 17:26; Start 07/20/16 at 22:15 Quetiapine Fumarate (SEROquel) 50 mg QHS PO ; Start 07/21/16 at 21:00; Stop at 21:00; Status DC Rivastigmine Tartrate (Exelon) 3 mg BID PO Last administered on 07/26/16 18:30 ; Start 07/21/16 at 09:00 Acetaminophen (Tylenol) 650 mg PRN Q4HRS PRN PO PAIN; Start 07/21/16 at 07:45; Stop 07/21/16 at 07:49; Status DC Amlodipine Besylate (Norvasc) 10 mg DAILY PO Last administered on 07/26/16 08: 14; Start 07/21/16 at 09:00 Lisinopril (Prinivil) 10 mg DAILY PO Last administered on 07/26/16 08:15; Start 07/21/16 at 09:00 Sertraline HCl (Zoloft) 25 mg DAILY PO Last administered on 07/26/16 08:15; Start 07/22/16 at 09:00 Risperidone (Risperdal) 0.25 mg BID SL Last administered on 07/26/16 18:31; Start 07/21/16 at 21:00 Olanzapine (Zyprexa Zydis) 2.5 mg PRN Q2HR PRN PO ANXIETY / AGITATION Last administered on 07/23/16 09:42; Start 07/21/16 at 18:15 Mirtazapine (Remeron) 7.5 mg QHS PO Last administered on 07/22/16 20:39; Start 07/22/16 at 21:00; Stop 07/23/16 at 10:37; Status DC Mirtazapine (Remeron) 15 mg QHS PO Last administered on 07/26/16 18:30; Start 07/23/16 at 21:00 Trazodone HCl (Desyrel) 50 mg PRN QHS PRN PO INSOMNIA, MAY REPEAT X1 Last administered on 07/23/16 19:41; Start 07/23/16 at 10:45 Prenat Multivit/ [place]/Iron/Folic Ac (Multivitamin ) 1 tab DAILYBFRSUP PO Last administered on 07/26/16 15:45; Start 07/25/16 at 17:00 Cyanocobalamin (Vitamin B-12) 1,000 mcg [id number] IM Last administered on 13:51; Start 07/25/16 at 11:30 Vitamin D (Vitamin D3) 2,000 unit BIDACLD PO Last administered on 07/26/16 15: 46; Start 07/25/16 at 11:30 Active Scripts Active Reported Lorazepam 0.5 Mg Tablet 0.5 Mg PO PRN BID Tylenol (Acetaminophen) 325 Mg Tablet 650 Mg PO PRN Q4HRS PRN Amlodipine Besylate 10 Mg Tablet 10 Mg PO DAILY Lisinopril 10 Mg Tablet 10 Mg PO DAILY Seroquel (Quetiapine Fumarate) 50 Mg Tablet 50 Mg PO QHS Rivastigmine (Rivastigmine Tartrate) 3 Mg Capsule 3 Mg PO BID MAIKEL CHAPMAN MD July 26, 2016 19:41
[2016-07-27 06:21] VITALS: BP 128/61
[2016-07-27] MEDS: LISINOPRIL 10 MG TABLET PO SCH (07:24)
[2016-07-27] MEDS: SERTRALINE 25 MG TABLET. PO SCH (07:24)
[2016-07-27] MEDS: RIVASTIGMINE 3 MG CAPSULE. PO SCH ×2 (07:25→20:57)
[2016-07-27] MEDS: amLODIPine BESYLATE 10 MG TABLET PO SCH (07:25)
[2016-07-27] MEDS: CHOLECALCIFEROL (VITAMIN D3) 1,000 UNIT TABLET PO SCH ×3 (07:25→20:57)
[2016-07-27] MEDS: risperiDONE ORAL 1 MG/ML 30ml BOTTLE. SL SCH ×2 (07:28→20:59)
[2016-07-27] MEDS: PRENATAL MULTIVITAMIN TABLET. PO SCH (16:32)
[2016-07-27 16:46] VITALS: BP 122/45
--- NOTE | 2016-07-27 19:54 | PDOC ---
Exam Saúl Demential Exam: Saúl Note: Please also refer to the separate dictated note~for this date of service dictated separately.~Patient seen individually. Discussed the patient with Nursing staff reviewed the chart.~Reviewed interim history and current functioning. Reviewed vital signs,~Labs/ Radiology~and current medications noted below. Continue current treatment with the changes noted in the dictated addendum note Assessment: Vital Signs: Vital Signs Date Time Temp Pulse Resp B/P (MAP) Pulse Ox O2 Delivery O2 Flow Rate FiO2 07/27/16 16:46 97.4 66 18 122/45 (70) 98 Room Air I&O Intake and Output 07/27/16 07:00 Intake Total 1220 ml Balance 1220 ml Intake Oral 1220 ml Current Medications: Meds: Current Medications Acetaminophen (Tylenol) 650 mg PRN Q6HRS PRN PO PAIN / TEMP; Start 07/20/16 at 21:45 Multi-Ingredient Ointment (Analgesic [place]) 1 swati PRN QID PRN TP MUSCLE PAIN; Start 07/20/16 at 21:45 Al Hydroxide/Mg Hydroxide (Mylanta Plus Xs) 15 ml PRN AFTMEALHC PRN PO DYSPEPSIA; Start 07/20/16 at 21:45 Magnesium Hydroxide (Milk Of Magnesia) 2,400 mg PRN QHS PRN PO CONSTIPATION; Start 07/20/16 at 21:45 Lorazepam (Ativan) 0.5 mg PRN BID PRN PO ANXIETY / AGITATION Last administered on 07/23/16 17:26; Start 07/20/16 at 22:15 Quetiapine Fumarate (SEROquel) 50 mg QHS PO ; Start 07/21/16 at 21:00; Stop at 21:00; Status DC Rivastigmine Tartrate (Exelon) 3 mg BID PO Last administered on 07/27/16 07:25 ; Start 07/21/16 at 09:00 Acetaminophen (Tylenol) 650 mg PRN Q4HRS PRN PO PAIN; Start 07/21/16 at 07:45; Stop 07/21/16 at 07:49; Status DC Amlodipine Besylate (Norvasc) 10 mg DAILY PO Last administered on 07/27/16 07: 25; Start 07/21/16 at 09:00 Lisinopril (Prinivil) 10 mg DAILY PO Last administered on 07/27/16 07:24; Start 07/21/16 at 09:00 Sertraline HCl (Zoloft) 25 mg DAILY PO Last administered on 07/27/16 07:24; Start 07/22/16 at 09:00 Risperidone (Risperdal) 0.25 mg BID SL Last administered on 07/27/16 07:28; Start 07/21/16 at 21:00 Olanzapine (Zyprexa Zydis) 2.5 mg PRN Q2HR PRN PO ANXIETY / AGITATION Last administered on 07/23/16 09:42; Start 07/21/16 at 18:15 Mirtazapine (Remeron) 7.5 mg QHS PO Last administered on 07/22/16 20:39; Start 07/22/16 at 21:00; Stop 07/23/16 at 10:37; Status DC Mirtazapine (Remeron) 15 mg QHS PO Last administered on 07/26/16 18:30; Start 07/23/16 at 21:00 Trazodone HCl (Desyrel) 50 mg PRN QHS PRN PO INSOMNIA, MAY REPEAT X1 Last administered on 07/23/16 19:41; Start 07/23/16 at 10:45 Prenat Multivit/ [place]/Iron/Folic Ac (Multivitamin ) 1 tab DAILYBFRSUP PO Last administered on 07/27/16 16:32; Start 07/25/16 at 17:00 Cyanocobalamin (Vitamin B-12) 1,000 mcg [id number] IM Last administered on 13:51; Start 07/25/16 at 11:30 Vitamin D (Vitamin D3) 2,000 unit BIDACLD PO Last administered on 07/27/16 16: 31; Start 07/25/16 at 11:30 Active Scripts Active Reported Lorazepam 0.5 Mg Tablet 0.5 Mg PO PRN BID Tylenol (Acetaminophen) 325 Mg Tablet 650 Mg PO PRN Q4HRS PRN Amlodipine Besylate 10 Mg Tablet 10 Mg PO DAILY Lisinopril 10 Mg Tablet 10 Mg PO DAILY Seroquel (Quetiapine Fumarate) 50 Mg Tablet 50 Mg PO QHS Rivastigmine (Rivastigmine Tartrate) 3 Mg Capsule 3 Mg PO BID ARI,MAN M MD July 27, 2016 19:54
[2016-07-27] MEDS: MIRTAZAPINE 15 MG TABLET PO SCH (20:57)
--- NOTE | 2016-07-27 22:59 | PN ---
DATE: 07/25/2016 PSYCHIATRIC PROGRESS NOTE This is late entry of 07/25/2016, covers elements not covered in my initial note. SUBJECTIVE: The patient remains confused, but has been pleasant, not aggressive. REVIEW OF SYSTEMS: No CV, , pulmonary, eye, ENT system symptoms on review. Reliability poor. MENTAL STATUS EXAMINATION: Oriented to herself and situation. Speech coherent, has some latency, abstraction fair, computation impaired, language function intact, attention span short. Mood and affect somewhat withdrawn. LABORATORY DATA: Reviewed. IMPRESSION: Unchanged from initial note. PLAN: Continue psychotropics mentioned in my initial note including Risperdal 0.25 mg b.i.d. for her psychotic symptoms. MAIKEL CHAPMAN MD DR: ARLINE/slim JOB#: [id number] / [id number]
--- NOTE | 2016-07-27 23:04 | PN ---
DATE: 07/26/2016 PSYCHIATRIC PROGRESS NOTE This is late entry of 07/26/2016, covers elements not covered in my initial note. SUBJECTIVE: The patient remains confused, but pleasant, not aggressive. REVIEW OF SYSTEMS: No CV, , eye, ENT or pulmonary system symptoms on review. Reliability poor. MENTAL STATUS EXAMINATION: Oriented to herself. Insight, judgment, recent and remote memory, attention, concentration, fund of knowledge poor, consistent with her diagnosis mentioned in my initial note. PLAN: Continue psychotropics mentioned in my initial note including Risperdal 0.25 b.i.d., risk/benefit ratio favors, no change for now and I have carefully reviewed drug interaction. MAN Patrice CHAPMAN MD DR: ARLINE/slim JOB#: [id number] / [id number]
[2016-07-28 06:10] VITALS: BP 147/59
--- NOTE | 2016-07-28 07:33 | PN ---
DATE: 07/24/2016 PSYCHIATRIC PROGRESS NOTE This is late entry for date of service of 07/24/2016, covers elements not covered in my initial note. SUBJECTIVE: The patient remains confused, was doing poorly in the morning, anxious, restless, exit seeking, wandering, slept 7-1/2 hours, did better in the evening. REVIEW OF SYSTEMS: No eye, ENT, CV, , pulmonary system symptoms on review. Reliability poor. MENTAL STATUS EXAMINATION: Oriented to herself. Insight, judgment, recent and remote memory, attention, concentration, fund of knowledge poor, consistent with her diagnosis mentioned in my initial note. PLAN: Continue current psychotropics, Exelon, Ativan p.r.n., Zoloft, Risperdal liquid, Zyprexa p.r.n., Remeron, trazodone, adjust further as clinically indicated. MAN Patrice CHAPMAN MD DR: ARLINE/slim JOB#: [id number] / [id number]
[2016-07-28] MEDS: RIVASTIGMINE 3 MG CAPSULE. PO SCH ×2 (09:26→20:02)
[2016-07-28] MEDS: SERTRALINE 25 MG TABLET. PO SCH (09:27)
[2016-07-28] MEDS: risperiDONE ORAL 1 MG/ML 30ml BOTTLE. SL SCH ×2 (09:28→20:03)
[2016-07-28] MEDS: amLODIPine BESYLATE 10 MG TABLET PO SCH (09:29)
[2016-07-28] MEDS: LISINOPRIL 10 MG TABLET PO SCH (09:29)
[2016-07-28 16:23] VITALS: BP 144/63
[2016-07-28] MEDS: PRENATAL MULTIVITAMIN TABLET. PO SCH (17:34)
[2016-07-28] MEDS: CHOLECALCIFEROL (VITAMIN D3) 1,000 UNIT TABLET PO SCH (17:34)
[2016-07-28] MEDS: MIRTAZAPINE 15 MG TABLET PO SCH (20:02)
--- NOTE | 2016-07-28 21:03 | PDOC ---
Exam Saúl Demential Exam: Saúl Note: Please also refer to the separate dictated note~for this date of service dictated separately.~Patient seen individually. Discussed the patient with Nursing staff reviewed the chart.~Reviewed interim history and current functioning. Reviewed vital signs,~Labs/ Radiology~and current medications noted below. Continue current treatment with the changes noted in the dictated addendum note Assessment: Vital Signs: Vital Signs Date Time Temp Pulse Resp B/P (MAP) Pulse Ox O2 Delivery O2 Flow Rate FiO2 07/28/16 16:23 97.4 77 16 144/63 (90) 100 07/27/16 16:46 Room Air I&O Intake and Output 07/28/16 07:00 Intake Total 720 ml Balance 720 ml Intake Oral 720 ml Current Medications: Meds: Current Medications Acetaminophen (Tylenol) 650 mg PRN Q6HRS PRN PO PAIN / TEMP; Start 07/20/16 at 21:45 Multi-Ingredient Ointment (Analgesic [place]) 1 swati PRN QID PRN TP MUSCLE PAIN; Start 07/20/16 at 21:45 Al Hydroxide/Mg Hydroxide (Mylanta Plus Xs) 15 ml PRN AFTMEALHC PRN PO DYSPEPSIA; Start 07/20/16 at 21:45 Magnesium Hydroxide (Milk Of Magnesia) 2,400 mg PRN QHS PRN PO CONSTIPATION; Start 07/20/16 at 21:45 Lorazepam (Ativan) 0.5 mg PRN BID PRN PO ANXIETY / AGITATION Last administered on 07/23/16 17:26; Start 07/20/16 at 22:15 Quetiapine Fumarate (SEROquel) 50 mg QHS PO ; Start 07/21/16 at 21:00; Stop at 21:00; Status DC Rivastigmine Tartrate (Exelon) 3 mg BID PO Last administered on 07/28/16 20:02 ; Start 07/21/16 at 09:00 Acetaminophen (Tylenol) 650 mg PRN Q4HRS PRN PO PAIN; Start 07/21/16 at 07:45; Stop 07/21/16 at 07:49; Status DC Amlodipine Besylate (Norvasc) 10 mg DAILY PO Last administered on 07/28/16 09: 29; Start 07/21/16 at 09:00 Lisinopril (Prinivil) 10 mg DAILY PO Last administered on 07/28/16 09:29; Start 07/21/16 at 09:00 Sertraline HCl (Zoloft) 25 mg DAILY PO Last administered on 07/28/16 09:27; Start 07/22/16 at 09:00 Risperidone (Risperdal) 0.25 mg BID SL Last administered on 07/28/16 20:03; Start 07/21/16 at 21:00 Olanzapine (Zyprexa Zydis) 2.5 mg PRN Q2HR PRN PO ANXIETY / AGITATION Last administered on 07/23/16 09:42; Start 07/21/16 at 18:15 Mirtazapine (Remeron) 7.5 mg QHS PO Last administered on 07/22/16 20:39; Start 07/22/16 at 21:00; Stop 07/23/16 at 10:37; Status DC Mirtazapine (Remeron) 15 mg QHS PO Last administered on 07/28/16 20:02; Start 07/23/16 at 21:00 Trazodone HCl (Desyrel) 50 mg PRN QHS PRN PO INSOMNIA, MAY REPEAT X1 Last administered on 07/23/16 19:41; Start 07/23/16 at 10:45 Prenat Multivit/ [place]/Iron/Folic Ac (Multivitamin ) 1 tab DAILYBFRSUP PO Last administered on 07/28/16 17:34; Start 07/25/16 at 17:00 Cyanocobalamin (Vitamin B-12) 1,000 mcg [id number] IM Last administered on 13:51; Start 07/25/16 at 11:30 Vitamin D (Vitamin D3) 2,000 unit BIDACLD PO Last administered on 07/28/16 17: 34; Start 07/25/16 at 11:30 Active Scripts Active Reported Lorazepam 0.5 Mg Tablet 0.5 Mg PO PRN BID Tylenol (Acetaminophen) 325 Mg Tablet 650 Mg PO PRN Q4HRS PRN Amlodipine Besylate 10 Mg Tablet 10 Mg PO DAILY Lisinopril 10 Mg Tablet 10 Mg PO DAILY Seroquel (Quetiapine Fumarate) 50 Mg Tablet 50 Mg PO QHS Rivastigmine (Rivastigmine Tartrate) 3 Mg Capsule 3 Mg PO BID MAIKEL CHAPMAN MD July 28, 2016 21:03
--- NOTE | 2016-07-29 00:38 | PN ---
DATE: 07/27/2016 PSYCHIATRIC PROGRESS NOTE This is late entry of 07/27/2016, covers elements not covered in my initial note. SUBJECTIVE: The patient slept 8-3/4 hours previous night, had a good day, has been pleasant, confused, still wandering on the patio but not trying to elope, redirected. REVIEW OF SYSTEMS: No CV, , eye, ENT or pulmonary system symptoms on review. Reliability poor. MENTAL STATUS EXAMINATION: Oriented to herself. Insight, judgment, recent and remote memory, attention, concentration, fund of knowledge poor, consistent with her diagnosis mentioned in my initial note. PLAN: Continue psychotropics mentioned in my initial note. Adjust further as clinically indicated. MAN Patrice CHAPMAN MD DR: ARLINE/slim JOB#: [id number] / [id number]
[2016-07-29 06:04] VITALS: BP 131/66
[2016-07-29] MEDS: RIVASTIGMINE 3 MG CAPSULE. PO SCH ×2 (09:26→19:11)
[2016-07-29] MEDS: SERTRALINE 25 MG TABLET. PO SCH (09:26)
[2016-07-29] MEDS: LISINOPRIL 10 MG TABLET PO SCH (09:26)
[2016-07-29] MEDS: amLODIPine BESYLATE 10 MG TABLET PO SCH (09:27)
[2016-07-29] MEDS: risperiDONE ORAL 1 MG/ML 30ml BOTTLE. SL SCH ×2 (09:28→19:16)
[2016-07-29] MEDS: CHOLECALCIFEROL (VITAMIN D3) 1,000 UNIT TABLET PO SCH ×2 (12:50→17:21)
[2016-07-29 16:21] VITALS: BP 152/67
[2016-07-29] MEDS: PRENATAL MULTIVITAMIN TABLET. PO SCH (17:21)
[2016-07-29] MEDS: MIRTAZAPINE 15 MG TABLET PO SCH (19:11)
--- NOTE | 2016-07-29 20:51 | PDOC ---
Exam Saúl Demential Exam: Saúl Note: Please also refer to the separate dictated note~for this date of service dictated separately.~Patient seen individually. Discussed the patient with Nursing staff reviewed the chart.~Reviewed interim history and current functioning. Reviewed vital signs,~Labs/ Radiology~and current medications noted below. Continue current treatment with the changes noted in the dictated addendum note Assessment: Vital Signs: Vital Signs Date Time Temp Pulse Resp B/P (MAP) Pulse Ox O2 Delivery O2 Flow Rate FiO2 07/29/16 16:21 98.8 70 16 152/67 (95) 99 07/29/16 06:04 Room Air I&O Intake and Output 07/29/16 07:00 Intake Total 1200 ml Balance 1200 ml Intake Oral 1200 ml Current Medications: Meds: Current Medications Acetaminophen (Tylenol) 650 mg PRN Q6HRS PRN PO PAIN / TEMP; Start 07/20/16 at 21:45 Multi-Ingredient Ointment (Analgesic [place]) 1 swati PRN QID PRN TP MUSCLE PAIN; Start 07/20/16 at 21:45 Al Hydroxide/Mg Hydroxide (Mylanta Plus Xs) 15 ml PRN AFTMEALHC PRN PO DYSPEPSIA; Start 07/20/16 at 21:45 Magnesium Hydroxide (Milk Of Magnesia) 2,400 mg PRN QHS PRN PO CONSTIPATION; Start 07/20/16 at 21:45 Lorazepam (Ativan) 0.5 mg PRN BID PRN PO ANXIETY / AGITATION Last administered on 07/23/16 17:26; Start 07/20/16 at 22:15 Quetiapine Fumarate (SEROquel) 50 mg QHS PO ; Start 07/21/16 at 21:00; Stop at 21:00; Status DC Rivastigmine Tartrate (Exelon) 3 mg BID PO Last administered on 07/29/16 19:11 ; Start 07/21/16 at 09:00 Acetaminophen (Tylenol) 650 mg PRN Q4HRS PRN PO PAIN; Start 07/21/16 at 07:45; Stop 07/21/16 at 07:49; Status DC Amlodipine Besylate (Norvasc) 10 mg DAILY PO Last administered on 07/29/16 09: 27; Start 07/21/16 at 09:00 Lisinopril (Prinivil) 10 mg DAILY PO Last administered on 07/29/16 09:26; Start 07/21/16 at 09:00 Sertraline HCl (Zoloft) 25 mg DAILY PO Last administered on 07/29/16 09:26; Start 07/22/16 at 09:00; Stop 07/29/16 at 15:09; Status DC Risperidone (Risperdal) 0.25 mg BID SL Last administered on 07/29/16 19:16; Start 07/21/16 at 21:00 Olanzapine (Zyprexa Zydis) 2.5 mg PRN Q2HR PRN PO ANXIETY / AGITATION Last administered on 07/23/16 09:42; Start 07/21/16 at 18:15 Mirtazapine (Remeron) 7.5 mg QHS PO Last administered on 07/22/16 20:39; Start 07/22/16 at 21:00; Stop 07/23/16 at 10:37; Status DC Mirtazapine (Remeron) 15 mg QHS PO Last administered on 07/29/16 19:11; Start 07/23/16 at 21:00 Trazodone HCl (Desyrel) 50 mg PRN QHS PRN PO INSOMNIA, MAY REPEAT X1 Last administered on 07/23/16 19:41; Start 07/23/16 at 10:45 Prenat Multivit/ [place]/Iron/Folic Ac (Multivitamin ) 1 tab DAILYBFRSUP PO Last administered on 07/29/16 17:21; Start 07/25/16 at 17:00 Cyanocobalamin (Vitamin B-12) 1,000 mcg [id number] IM Last administered on 13:51; Start 07/25/16 at 11:30 Vitamin D (Vitamin D3) 2,000 unit BIDACLD PO Last administered on 07/29/16 17: 21; Start 07/25/16 at 11:30 Sertraline HCl (Zoloft) 50 mg DAILY PO ; Start 07/30/16 at 09:00 Active Scripts Active Reported Lorazepam 0.5 Mg Tablet 0.5 Mg PO PRN BID Tylenol (Acetaminophen) 325 Mg Tablet 650 Mg PO PRN Q4HRS PRN Amlodipine Besylate 10 Mg Tablet 10 Mg PO DAILY Lisinopril 10 Mg Tablet 10 Mg PO DAILY Seroquel (Quetiapine Fumarate) 50 Mg Tablet 50 Mg PO QHS Rivastigmine (Rivastigmine Tartrate) 3 Mg Capsule 3 Mg PO BID MAIKEL CHAPMAN MD July 29, 2016 20:51
[2016-07-30 06:04] VITALS: BP 154/70
--- NOTE | 2016-07-30 08:04 | PN ---
DATE: 07/28/2016 PSYCHIATRIC PROGRESS NOTE This late entry of 07/28/2016, covers elements not covered in my initial note. SUBJECTIVE: The patient remains confused, wanders, was exit-seeking the previous evening, but not so on 07/28/2016, not been hiding, less paranoid. REVIEW OF SYSTEMS: No CV, , pulmonary, eye, ENT system symptoms on review. Reliability poor. MENTAL STATUS EXAM: Oriented to herself. Insight, judgment, recent and remote memory, attention, concentration, fund of knowledge poor, consistent with her diagnosis mentioned in my initial note. PLAN: Continue current psychotropics, Exelon 3 mg b.i.d., Ativan p.r.n., Zoloft 25 mg a day, Risperdal 0.25 b.i.d., Zyprexa p.r.n., Remeron 15 at bedtime, trazodone p.r.n. We will go ahead and increase the Zoloft to 50 mg a day. Adjust further as clinically indicated. MAN Patrice CHAPMAN MD DR: ARLINE/slim JOB#: [id number] / [id number]
[2016-07-30] MEDS: LISINOPRIL 10 MG TABLET PO SCH (09:45)
[2016-07-30] MEDS: amLODIPine BESYLATE 10 MG TABLET PO SCH (09:45)
[2016-07-30] MEDS: RIVASTIGMINE 3 MG CAPSULE. PO SCH ×2 (09:45→19:38)
[2016-07-30] MEDS: risperiDONE ORAL 1 MG/ML 30ml BOTTLE. SL SCH ×2 (09:46→19:38)
[2016-07-30] MEDS: SERTRALINE 50 MG TABLET. PO SCH (09:47)
[2016-07-30] MEDS: CHOLECALCIFEROL (VITAMIN D3) 1,000 UNIT TABLET PO SCH ×2 (11:40→16:14)
[2016-07-30 15:46] VITALS: BP 138/62
[2016-07-30] MEDS: PRENATAL MULTIVITAMIN TABLET. PO SCH (16:14)
[2016-07-30] MEDS: MIRTAZAPINE 15 MG TABLET PO SCH (19:38)
--- NOTE | 2016-07-30 20:29 | PDOC ---
Exam Saúl Demential Exam: Saúl Note: Please also refer to the separate dictated note~for this date of service dictated separately.~Patient seen individually. Discussed the patient with Nursing staff reviewed the chart.~Reviewed interim history and current functioning. Reviewed vital signs,~Labs/ Radiology~and current medications noted below. Continue current treatment with the changes noted in the dictated addendum note Assessment: Vital Signs: Vital Signs Date Time Temp Pulse Resp B/P (MAP) Pulse Ox O2 Delivery O2 Flow Rate FiO2 07/30/16 15:46 98.4 69 18 138/62 (87) 99 07/30/16 06:04 Room Air I&O Intake and Output 07/30/16 07:00 Intake Total 840 ml Balance 840 ml Intake Oral 840 ml Current Medications: Meds: Current Medications Acetaminophen (Tylenol) 650 mg PRN Q6HRS PRN PO PAIN / TEMP; Start 07/20/16 at 21:45 Multi-Ingredient Ointment (Analgesic [place]) 1 swati PRN QID PRN TP MUSCLE PAIN; Start 07/20/16 at 21:45 Al Hydroxide/Mg Hydroxide (Mylanta Plus Xs) 15 ml PRN AFTMEALHC PRN PO DYSPEPSIA; Start 07/20/16 at 21:45 Magnesium Hydroxide (Milk Of Magnesia) 2,400 mg PRN QHS PRN PO CONSTIPATION; Start 07/20/16 at 21:45 Lorazepam (Ativan) 0.5 mg PRN BID PRN PO ANXIETY / AGITATION Last administered on 07/23/16 17:26; Start 07/20/16 at 22:15 Quetiapine Fumarate (SEROquel) 50 mg QHS PO ; Start 07/21/16 at 21:00; Stop at 21:00; Status DC Rivastigmine Tartrate (Exelon) 3 mg BID PO Last administered on 07/30/16 19:38 ; Start 07/21/16 at 09:00 Acetaminophen (Tylenol) 650 mg PRN Q4HRS PRN PO PAIN; Start 07/21/16 at 07:45; Stop 07/21/16 at 07:49; Status DC Amlodipine Besylate (Norvasc) 10 mg DAILY PO Last administered on 07/30/16 09: 45; Start 07/21/16 at 09:00 Lisinopril (Prinivil) 10 mg DAILY PO Last administered on 07/30/16 09:45; Start 07/21/16 at 09:00 Sertraline HCl (Zoloft) 25 mg DAILY PO Last administered on 07/29/16 09:26; Start 07/22/16 at 09:00; Stop 07/29/16 at 15:09; Status DC Risperidone (Risperdal) 0.25 mg BID SL Last administered on 07/30/16 19:38; Start 07/21/16 at 21:00 Olanzapine (Zyprexa Zydis) 2.5 mg PRN Q2HR PRN PO ANXIETY / AGITATION Last administered on 07/23/16 09:42; Start 07/21/16 at 18:15 Mirtazapine (Remeron) 7.5 mg QHS PO Last administered on 07/22/16 20:39; Start 07/22/16 at 21:00; Stop 07/23/16 at 10:37; Status DC Mirtazapine (Remeron) 15 mg QHS PO Last administered on 07/30/16 19:38; Start 07/23/16 at 21:00 Trazodone HCl (Desyrel) 50 mg PRN QHS PRN PO INSOMNIA, MAY REPEAT X1 Last administered on 07/23/16 19:41; Start 07/23/16 at 10:45 Prenat Multivit/ [place]/Iron/Folic Ac (Multivitamin ) 1 tab DAILYBFRSUP PO Last administered on 07/30/16 16:14; Start 07/25/16 at 17:00 Cyanocobalamin (Vitamin B-12) 1,000 mcg [id number] IM Last administered on 13:51; Start 07/25/16 at 11:30 Vitamin D (Vitamin D3) 2,000 unit BIDACLD PO Last administered on 07/30/16 16: 14; Start 07/25/16 at 11:30 Sertraline HCl (Zoloft) 50 mg DAILY PO Last administered on 07/30/16 09:47; Start 07/30/16 at 09:00 Glimepiride (Amaryl) 1 mg DAILY PO ; Start 07/31/16 at 09:00 Active Scripts Active Reported Lorazepam 0.5 Mg Tablet 0.5 Mg PO PRN BID Tylenol (Acetaminophen) 325 Mg Tablet 650 Mg PO PRN Q4HRS PRN Amlodipine Besylate 10 Mg Tablet 10 Mg PO DAILY Lisinopril 10 Mg Tablet 10 Mg PO DAILY Seroquel (Quetiapine Fumarate) 50 Mg Tablet 50 Mg PO QHS Rivastigmine (Rivastigmine Tartrate) 3 Mg Capsule 3 Mg PO BID MAIKEL CHAPMAN MD July 30, 2016 20:28
[2016-07-31 06:18] VITALS: BP 146/67
[2016-07-31] MEDS: risperiDONE ORAL 1 MG/ML 30ml BOTTLE. SL SCH ×2 (08:27→19:14)
[2016-07-31] MEDS: GLIMEPIRIDE 1 MG TABLET PO SCH (08:28)
[2016-07-31] MEDS: SERTRALINE 50 MG TABLET. PO SCH (08:28)
[2016-07-31] MEDS: amLODIPine BESYLATE 10 MG TABLET PO SCH (08:28)
[2016-07-31] MEDS: RIVASTIGMINE 3 MG CAPSULE. PO SCH ×2 (08:28→19:14)
[2016-07-31] MEDS: LISINOPRIL 10 MG TABLET PO SCH (08:28)
[2016-07-31] MEDS: CHOLECALCIFEROL (VITAMIN D3) 1,000 UNIT TABLET PO SCH ×2 (11:48→16:59)
[2016-07-31 15:55] VITALS: BP 102/48
[2016-07-31] MEDS: PRENATAL MULTIVITAMIN TABLET. PO SCH (16:59)
[2016-07-31] MEDS: traZODone 50 MG TABLET. PO PRN (19:14)
[2016-07-31] MEDS: MIRTAZAPINE 15 MG TABLET PO SCH (19:14)
--- NOTE | 2016-07-31 21:21 | PDOC ---
Exam Saúl Demential Exam: Saúl Note: Please also refer to the separate dictated note~for this date of service dictated separately.~Patient seen individually. Discussed the patient with Nursing staff reviewed the chart.~Reviewed interim history and current functioning. Reviewed vital signs,~Labs/ Radiology~and current medications noted below. Continue current treatment with the changes noted in the dictated addendum note Assessment: Vital Signs: Vital Signs Date Time Temp Pulse Resp B/P (MAP) Pulse Ox O2 Delivery O2 Flow Rate FiO2 07/31/16 15:55 97.3 78 22 102/48 (66) 96 07/30/16 06:04 Room Air I&O Intake and Output 07/31/16 07:00 Intake Total 1200 ml Balance 1200 ml Intake Oral 1200 ml Current Medications: Meds: Current Medications Acetaminophen (Tylenol) 650 mg PRN Q6HRS PRN PO PAIN / TEMP; Start 07/20/16 at 21:45 Multi-Ingredient Ointment (Analgesic [place]) 1 swati PRN QID PRN TP MUSCLE PAIN; Start 07/20/16 at 21:45 Al Hydroxide/Mg Hydroxide (Mylanta Plus Xs) 15 ml PRN AFTMEALHC PRN PO DYSPEPSIA; Start 07/20/16 at 21:45 Magnesium Hydroxide (Milk Of Magnesia) 2,400 mg PRN QHS PRN PO CONSTIPATION; Start 07/20/16 at 21:45 Lorazepam (Ativan) 0.5 mg PRN BID PRN PO ANXIETY / AGITATION Last administered on 07/23/16 17:26; Start 07/20/16 at 22:15 Quetiapine Fumarate (SEROquel) 50 mg QHS PO ; Start 07/21/16 at 21:00; Stop at 21:00; Status DC Rivastigmine Tartrate (Exelon) 3 mg BID PO Last administered on 07/31/16 19:14 ; Start 07/21/16 at 09:00 Acetaminophen (Tylenol) 650 mg PRN Q4HRS PRN PO PAIN; Start 07/21/16 at 07:45; Stop 07/21/16 at 07:49; Status DC Amlodipine Besylate (Norvasc) 10 mg DAILY PO Last administered on 07/31/16 08: 28; Start 07/21/16 at 09:00 Lisinopril (Prinivil) 10 mg DAILY PO Last administered on 07/31/16 08:28; Start 07/21/16 at 09:00 Sertraline HCl (Zoloft) 25 mg DAILY PO Last administered on 07/29/16 09:26; Start 07/22/16 at 09:00; Stop 07/29/16 at 15:09; Status DC Risperidone (Risperdal) 0.25 mg BID SL Last administered on 07/31/16 19:14; Start 07/21/16 at 21:00 Olanzapine (Zyprexa Zydis) 2.5 mg PRN Q2HR PRN PO ANXIETY / AGITATION Last administered on 07/23/16 09:42; Start 07/21/16 at 18:15 Mirtazapine (Remeron) 7.5 mg QHS PO Last administered on 07/22/16 20:39; Start 07/22/16 at 21:00; Stop 07/23/16 at 10:37; Status DC Mirtazapine (Remeron) 15 mg QHS PO Last administered on 07/31/16 19:14; Start 07/23/16 at 21:00 Trazodone HCl (Desyrel) 50 mg PRN QHS PRN PO INSOMNIA, MAY REPEAT X1 Last administered on 07/31/16 19:14; Start 07/23/16 at 10:45 Prenat Multivit/ [place]/Iron/Folic Ac (Multivitamin ) 1 tab DAILYBFRSUP PO Last administered on 07/31/16 16:59; Start 07/25/16 at 17:00 Cyanocobalamin (Vitamin B-12) 1,000 mcg [id number] IM Last administered on 13:51; Start 07/25/16 at 11:30 Vitamin D (Vitamin D3) 2,000 unit BIDACLD PO Last administered on 07/31/16 16: 59; Start 07/25/16 at 11:30 Sertraline HCl (Zoloft) 50 mg DAILY PO Last administered on 07/31/16 08:28; Start 07/30/16 at 09:00 Glimepiride (Amaryl) 1 mg DAILY PO Last administered on 07/31/16 08:28; Start 07/31/16 at 09:00 Active Scripts Active Reported Lorazepam 0.5 Mg Tablet 0.5 Mg PO PRN BID Tylenol (Acetaminophen) 325 Mg Tablet 650 Mg PO PRN Q4HRS PRN Amlodipine Besylate 10 Mg Tablet 10 Mg PO DAILY Lisinopril 10 Mg Tablet 10 Mg PO DAILY Seroquel (Quetiapine Fumarate) 50 Mg Tablet 50 Mg PO QHS Rivastigmine (Rivastigmine Tartrate) 3 Mg Capsule 3 Mg PO BID MAIKEL CHAPMAN MD July 31, 2016 21:21
[2016-08-01 06:02] VITALS: BP 128/62
[2016-08-01 06:37] LABS: BASO # 0.1 x10^3/uL (0.0-0.2); BASO % 1 % (0-3); EOS # 0.2 x10^3/uL (0.0-0.7); EOS % 3 % (0-3); HEMATOCRIT 27.1 % (36.0-47.0); HEMOGLOBIN 9.3 g/dL (12.0-15.5); LYMPH # 1.5 x10^3/uL (1.0-4.8); LYMPH % 25 % (24-48); MEAN CORPUSCULAR HEMOGLOBIN 28 pg (25-35); MEAN CORPUSCULAR HGB CONC 34 g/dL (31-37); MEAN CORPUSCULAR VOLUME 81 fL (79-100); MONO # 0.6 x10^3/uL (0.0-1.1); MONO % 10 % (0-9); NEUT # 3.8 x10^3uL (1.8-7.7); NEUT % 62 % (31-73); PLATELET COUNT 214 x10^3/uL (140-400); RED BLOOD COUNT 3.35 x10^6/uL (3.50-5.40); RED CELL DISTRIBUTION WIDTH 13.9 % (11.5-14.5); WHITE BLOOD COUNT 6.2 x10^3/uL (4.0-11.0)
[2016-08-01 06:50] LABS: ALBUMIN 3.2 g/dL (3.4-5.0); ALBUMIN/GLOBULIN RATIO 0.8 (1.0-1.7); CALCIUM 9.1 mg/dL (8.5-10.1); CREATININE 1.3 mg/dL (0.6-1.0); TOTAL BILIRUBIN 0.3 mg/dL (0.2-1.0); TOTAL PROTEIN 7.2 g/dL (6.4-8.2)
[2016-08-01] MEDS: LISINOPRIL 10 MG TABLET PO SCH (07:53)
[2016-08-01] MEDS: RIVASTIGMINE 3 MG CAPSULE. PO SCH ×2 (07:53→19:10)
[2016-08-01] MEDS: GLIMEPIRIDE 1 MG TABLET PO SCH (07:53)
[2016-08-01] MEDS: amLODIPine BESYLATE 10 MG TABLET PO SCH (07:53)
[2016-08-01] MEDS: risperiDONE ORAL 1 MG/ML 30ml BOTTLE. SL SCH ×2 (07:54→19:10)
[2016-08-01] MEDS: SERTRALINE 50 MG TABLET. PO SCH (07:54)
--- NOTE | 2016-08-01 10:46 | PN ---
DATE: 07/29/2016 PSYCHIATRIC PROGRESS NOTE This is a late entry 07/29/2016, covers elements not covered in my initial note. SUBJECTIVE: Overall, the patient is doing better. She is still somewhat intrusive, taking things from others including eyeglasses from another patient, will not give them back. REVIEW OF SYSTEMS: No CV, , pulmonary, eye system symptoms on review. Reliability poor. MENTAL STATUS EXAM: Oriented to herself. Insight, judgment, recent and remote memory, attention, concentration, fund of knowledge poor, consistent with her diagnoses mentioned in my initial note. PLAN: Continue psychotropics mentioned in my initial note. Adjust further as clinically indicated. MAIKEL CHAPMAN MD DR: ARLINE/slim JOB#: [id number] / [id number]
--- NOTE | 2016-08-01 10:51 | PN ---
DATE: 07/30/2016 PSYCHIATRIC PROGRESS NOTE This is a late entry of 07/30/2016, covers elements not covered in my initial note. SUBJECTIVE: The patient remains confused, but redirectable. She was staffed at a treatment team meeting with the entire team and her son, Deepak, attended the conference. Reviewed her history at length, diagnosis, progress, prognosis. Son shared that the patient's had talked about her getting more confused, forgetful for an extended period of time before he in the end of last year, so this level of confusion was not surprising to the family even though some of the agitation certainly was new. VITAL SIGNS: had been concerned that she would drive away in the car secondary to the confusion. REVIEW OF SYSTEMS: No CV, , pulmonary, eye, ENT system symptoms on review. Reliability poor. MENTAL STATUS EXAM: Oriented to herself. Insight, judgment, recent and remote memory, attention, concentration, fund of knowledge poor, consistent with her diagnosis mentioned in my initial note. PLAN: Continue psychotropics mentioned in my initial note, may need to adjust further as clinically indicated, but for now she seems to be doing better. MAN Patrice CHAPMAN MD DR: ARLINE/slim JOB#: [id number] / [id number]
[2016-08-01] MEDS: CHOLECALCIFEROL (VITAMIN D3) 1,000 UNIT TABLET PO SCH ×3 (11:50→17:38)
[2016-08-01 15:53] VITALS: BP 127/67
[2016-08-01] MEDS: PRENATAL MULTIVITAMIN TABLET. PO SCH (17:38)
[2016-08-01] MEDS: traZODone 50 MG TABLET. PO PRN (19:10)
[2016-08-01] MEDS: MIRTAZAPINE 15 MG TABLET PO SCH (19:10)
--- NOTE | 2016-08-01 22:46 | PDOC ---
Exam Saúl Demential Exam: Saúl Note: Please also refer to the separate dictated note~for this date of service dictated separately.~Patient seen individually. Discussed the patient with Nursing staff reviewed the chart.~Reviewed interim history and current functioning. Reviewed vital signs,~Labs/ Radiology~and current medications noted below. Continue current treatment with the changes noted in the dictated addendum note Assessment: Vital Signs: Vital Signs Date Time Temp Pulse Resp B/P (MAP) Pulse Ox O2 Delivery O2 Flow Rate FiO2 08/01/16 15:53 97.4 72 18 127/67 (87) 100 07/30/16 06:04 Room Air I&O Intake and Output 08/01/16 07:00 Intake Total 840 ml Balance 840 ml Intake Oral 840 ml Labs: Laboratory Tests Test 08/01/16 06:00 White Blood Count 6.2 x10^3/uL (4.0-11.0) Red Blood Count 3.35 x10^6/uL (3.50-5.40) L Hemoglobin 9.3 g/dL (12.0-15.5) L Hematocrit 27.1 % (36.0-47.0) L Mean Corpuscular Volume 81 fL (79-100) Mean Corpuscular Hemoglobin 28 pg (25-35) Mean Corpuscular Hemoglobin Concent 34 g/dL (31-37) Red Cell Distribution Width 13.9 % (11.5-14.5) Platelet Count 214 x10^3/uL (140-400) Neutrophils (%) (Auto) 62 % (31-73) Lymphocytes (%) (Auto) 25 % (24-48) Monocytes (%) (Auto) 10 % (0-9) H Eosinophils (%) (Auto) 3 % (0-3) Basophils (%) (Auto) 1 % (0-3) Neutrophils # (Auto) 3.8 x10^3uL (1.8-7.7) Lymphocytes # (Auto) 1.5 x10^3/uL (1.0-4.8) Monocytes # (Auto) 0.6 x10^3/uL (0.0-1.1) Eosinophils # (Auto) 0.2 x10^3/uL (0.0-0.7) Basophils # (Auto) 0.1 x10^3/uL (0.0-0.2) Sodium Level 141 mmol/L (136-145) Potassium Level 4.0 mmol/L (3.5-5.1) Chloride Level 105 mmol/L (98-107) Carbon Dioxide Level 28 mmol/L (21-32) Anion Gap 8 (6-14) Blood Urea Nitrogen 39 mg/dL (7-20) H Creatinine 1.3 mg/dL (0.6-1.0) H Estimated GFR (Cockcroft-Gault) 39.0 BUN/Creatinine Ratio 30 (6-20) H Glucose Level 72 mg/dL (70-99) Calcium Level 9.1 mg/dL (8.5-10.1) Total Bilirubin 0.3 mg/dL (0.2-1.0) Aspartate Amino Transferase (AST) 22 U/L (15-37) Alanine Aminotransferase (ALT) 26 U/L (14-59) Alkaline Phosphatase 62 U/L (46-116) Total Protein 7.2 g/dL (6.4-8.2) Albumin 3.2 g/dL (3.4-5.0) L Albumin/Globulin Ratio 0.8 (1.0-1.7) L Current Medications: Meds: Current Medications Acetaminophen (Tylenol) 650 mg PRN Q6HRS PRN PO PAIN / TEMP; Start 07/20/16 at 21:45 Multi-Ingredient Ointment (Analgesic [place]) 1 swati PRN QID PRN TP MUSCLE PAIN; Start 07/20/16 at 21:45 Al Hydroxide/Mg Hydroxide (Mylanta Plus Xs) 15 ml PRN AFTMEALHC PRN PO DYSPEPSIA; Start 07/20/16 at 21:45 Magnesium Hydroxide (Milk Of Magnesia) 2,400 mg PRN QHS PRN PO CONSTIPATION; Start 07/20/16 at 21:45 Lorazepam (Ativan) 0.5 mg PRN BID PRN PO ANXIETY / AGITATION Last administered on 07/23/16 17:26; Start 07/20/16 at 22:15 Quetiapine Fumarate (SEROquel) 50 mg QHS PO ; Start 07/21/16 at 21:00; Stop at 21:00; Status DC Rivastigmine Tartrate (Exelon) 3 mg BID PO Last administered on 08/01/16 19:10 ; Start 07/21/16 at 09:00 Acetaminophen (Tylenol) 650 mg PRN Q4HRS PRN PO PAIN; Start 07/21/16 at 07:45; Stop 07/21/16 at 07:49; Status DC Amlodipine Besylate (Norvasc) 10 mg DAILY PO Last administered on 08/01/16 07: 53; Start 07/21/16 at 09:00 Lisinopril (Prinivil) 10 mg DAILY PO Last administered on 08/01/16 07:53; Start 07/21/16 at 09:00 Sertraline HCl (Zoloft) 25 mg DAILY PO Last administered on 07/29/16 09:26; Start 07/22/16 at 09:00; Stop 07/29/16 at 15:09; Status DC Risperidone (Risperdal) 0.25 mg BID SL Last administered on 08/01/16 19:10; Start 07/21/16 at 21:00 Olanzapine (Zyprexa Zydis) 2.5 mg PRN Q2HR PRN PO ANXIETY / AGITATION Last administered on 07/23/16 09:42; Start 07/21/16 at 18:15 Mirtazapine (Remeron) 7.5 mg QHS PO Last administered on 07/22/16 20:39; Start 07/22/16 at 21:00; Stop 07/23/16 at 10:37; Status DC Mirtazapine (Remeron) 15 mg QHS PO Last administered on 08/01/16 19:10; Start 07/23/16 at 21:00 Trazodone HCl (Desyrel) 50 mg PRN QHS PRN PO INSOMNIA, MAY REPEAT X1 Last administered on 08/01/16 19:10; Start 07/23/16 at 10:45 Prenat Multivit/ [place]/Iron/Folic Ac (Multivitamin ) 1 tab DAILYBFRSUP PO Last administered on 08/01/16 17:38; Start 07/25/16 at 17:00 Cyanocobalamin (Vitamin B-12) 1,000 mcg [id number] IM Last administered on 13:51; Start 07/25/16 at 11:30 Vitamin D (Vitamin D3) 2,000 unit BIDACLD PO Last administered on 08/01/16 17: 38; Start 07/25/16 at 11:30 Sertraline HCl (Zoloft) 50 mg DAILY PO Last administered on 08/01/16 07:54; Start 07/30/16 at 09:00 Glimepiride (Amaryl) 1 mg DAILY PO Last administered on 08/01/16 07:53; Start 07/31/16 at 09:00 Active Scripts Active Reported Lorazepam 0.5 Mg Tablet 0.5 Mg PO PRN BID Tylenol (Acetaminophen) 325 Mg Tablet 650 Mg PO PRN Q4HRS PRN Amlodipine Besylate 10 Mg Tablet 10 Mg PO DAILY Lisinopril 10 Mg Tablet 10 Mg PO DAILY Seroquel (Quetiapine Fumarate) 50 Mg Tablet 50 Mg PO QHS Rivastigmine (Rivastigmine Tartrate) 3 Mg Capsule 3 Mg PO BID Diagnosis: Problems: (1) Agitation (2) Anxiety disorder (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
[2016-08-02 05:58] VITALS: BP 136/57
[2016-08-02] MEDS: SERTRALINE 50 MG TABLET. PO SCH (08:02)
[2016-08-02] MEDS: RIVASTIGMINE 3 MG CAPSULE. PO SCH ×2 (08:02→19:27)
[2016-08-02] MEDS: amLODIPine BESYLATE 10 MG TABLET PO SCH (08:03)
[2016-08-02] MEDS: GLIMEPIRIDE 1 MG TABLET PO SCH (08:03)
[2016-08-02] MEDS: LISINOPRIL 10 MG TABLET PO SCH (08:03)
[2016-08-02] MEDS: CHOLECALCIFEROL (VITAMIN D3) 1,000 UNIT TABLET PO SCH ×2 (08:03→16:31)
[2016-08-02] MEDS: risperiDONE ORAL 1 MG/ML 30ml BOTTLE. SL SCH ×2 (08:08→19:27)
[2016-08-02 16:19] VITALS: BP 115/64
[2016-08-02] MEDS: PRENATAL MULTIVITAMIN TABLET. PO SCH (16:31)
[2016-08-02] MEDS ORDERED: CHOL10003 PO (17:59)
[2016-08-02] MEDS ORDERED: CYAN10002 IM (18:00)
[2016-08-02] MEDS ORDERED: GLIM1TAB2 PO (18:02)
[2016-08-02] MEDS ORDERED: MAG355OR17 PO (18:02)
[2016-08-02] MEDS ORDERED: MAGN2400 PO (18:03)
[2016-08-02] MEDS ORDERED: METH57CR8 TP (18:03)
[2016-08-02] MEDS ORDERED: MIRT15TA PO (18:04)
[2016-08-02] MEDS ORDERED: OLAN5TAB5 PO (18:04)
[2016-08-02] MEDS ORDERED: SERT50TA PO (18:05)
[2016-08-02] MEDS ORDERED: PREN1TAB58 PO (18:05)
[2016-08-02] MEDS ORDERED: RISP0.253 SL (18:08)
[2016-08-02] MEDS ORDERED: TRAZ50TA15 PO (18:08)
[2016-08-02] MEDS ORDERED: RISP1SOL SL (18:09)
[2016-08-02] MEDS: traZODone 50 MG TABLET. PO PRN (19:27)
[2016-08-02] MEDS: MIRTAZAPINE 15 MG TABLET PO SCH (19:27)
--- NOTE | 2016-08-02 21:05 | PDOC ---
Exam Saúl Demential Exam: Saúl Note: Please also refer to the separate dictated note~for this date of service dictated separately.~Patient seen individually. Discussed the patient with Nursing staff reviewed the chart.~Reviewed interim history and current functioning. Reviewed vital signs,~Labs/ Radiology~and current medications noted below. Continue current treatment with the changes noted in the dictated addendum note Assessment: Vital Signs: Vital Signs Date Time Temp Pulse Resp B/P (MAP) Pulse Ox O2 Delivery O2 Flow Rate FiO2 08/02/16 16:19 97.5 68 18 115/64 (81) 98 Room Air I&O Intake and Output 08/02/16 07:00 Intake Total 840 ml Balance 840 ml Intake Oral 840 ml Current Medications: Meds: Current Medications Acetaminophen (Tylenol) 650 mg PRN Q6HRS PRN PO PAIN / TEMP; Start 07/20/16 at 21:45 Multi-Ingredient Ointment (Analgesic [place]) 1 hanna PRN QID PRN TP MUSCLE PAIN; Start 07/20/16 at 21:45 Al Hydroxide/Mg Hydroxide (Mylanta Plus Xs) 15 ml PRN AFTMEALHC PRN PO DYSPEPSIA; Start 07/20/16 at 21:45 Magnesium Hydroxide (Milk Of Magnesia) 2,400 mg PRN QHS PRN PO CONSTIPATION; Start 07/20/16 at 21:45 Lorazepam (Ativan) 0.5 mg PRN BID PRN PO ANXIETY / AGITATION Last administered on 07/23/16 17:26; Start 07/20/16 at 22:15 Quetiapine Fumarate (SEROquel) 50 mg QHS PO ; Start 07/21/16 at 21:00; Stop at 21:00; Status DC Rivastigmine Tartrate (Exelon) 3 mg BID PO Last administered on 08/02/16 19:27 ; Start 07/21/16 at 09:00 Acetaminophen (Tylenol) 650 mg PRN Q4HRS PRN PO PAIN; Start 07/21/16 at 07:45; Stop 07/21/16 at 07:49; Status DC Amlodipine Besylate (Norvasc) 10 mg DAILY PO Last administered on 08/02/16 08: 03; Start 07/21/16 at 09:00 Lisinopril (Prinivil) 10 mg DAILY PO Last administered on 08/02/16 08:03; Start 07/21/16 at 09:00 Sertraline HCl (Zoloft) 25 mg DAILY PO Last administered on 07/29/16 09:26; Start 07/22/16 at 09:00; Stop 07/29/16 at 15:09; Status DC Risperidone (Risperdal) 0.25 mg BID SL Last administered on 08/02/16 19:27; Start 07/21/16 at 21:00 Olanzapine (Zyprexa Zydis) 2.5 mg PRN Q2HR PRN PO ANXIETY / AGITATION Last administered on 07/23/16 09:42; Start 07/21/16 at 18:15 Mirtazapine (Remeron) 7.5 mg QHS PO Last administered on 07/22/16 20:39; Start 07/22/16 at 21:00; Stop 07/23/16 at 10:37; Status DC Mirtazapine (Remeron) 15 mg QHS PO Last administered on 08/02/16 19:27; Start 07/23/16 at 21:00 Trazodone HCl (Desyrel) 50 mg PRN QHS PRN PO INSOMNIA, MAY REPEAT X1 Last administered on 08/02/16 19:27; Start 07/23/16 at 10:45 Prenat Multivit/ [place]/Iron/Folic Ac (Multivitamin ) 1 tab DAILYBFRSUP PO Last administered on 08/02/16 16:31; Start 07/25/16 at 17:00 Cyanocobalamin (Vitamin B-12) 1,000 mcg [id number] IM Last administered on 13:51; Start 07/25/16 at 11:30 Vitamin D (Vitamin D3) 2,000 unit BIDACLD PO Last administered on 08/02/16 16: 31; Start 07/25/16 at 11:30 Sertraline HCl (Zoloft) 50 mg DAILY PO Last administered on 08/02/16 08:02; Start 07/30/16 at 09:00 Glimepiride (Amaryl) 1 mg DAILY PO Last administered on 08/02/16 08:03; Start 07/31/16 at 09:00 Active Scripts Active Reported Risperidone 1 Mg/1 Ml Solution 0.25 Mg SL BID Trazodone Hcl 50 Mg Tablet 50 Mg PO PRN QHS PRN Risperidone 0.25 Mg Tablet 0.25 Mg SL BID Zoloft (Sertraline Hcl) 50 Mg Tablet 50 Mg PO DAILY Vitamins ( Vits W-Ca,Fe,Fa(<1MG)) 1 Each Tablet 1 Tab PO DAILYBFRSUP Zyprexa Zydis (Olanzapine) 5 Mg Tab.rapdis 2.5 Mg PO PRN Q2HR PRN Remeron (Mirtazapine) 15 Mg Tablet 15 Mg PO QHS [place] Ultra Strength Crm (Methyl Salicylate/Menth/Camph) 57 Gm Cream..g. 1 Hanna TP PRN QID PRN Milk Of Magnesia (Magnesium Hydroxide) 2,400 Mg/10 Ml Oral.susp 2,400 Mg PO PRN QHS PRN Advanced Antacid Liquid (Mag Hydrox/Al Hydrox/Simeth) 355 Ml Oral.susp 15 Ml PO PRN AFTMEALHC PRN Glimepiride 1 Mg Tablet 1 Mg PO DAILY Cyanocobalamin Injection (Cyanocobalamin (Vitamin B-12)) 1,000 Mcg/1 Ml Vial 1, 000 Mcg IM [id number] Vitamin D3 (Cholecalciferol (Vitamin D3)) 1,000 Unit Tablet 2,000 Unit PO BIDACLD Lorazepam 0.5 Mg Tablet 0.5 Mg PO PRN BID Tylenol (Acetaminophen) 325 Mg Tablet 650 Mg PO PRN Q4HRS PRN Amlodipine Besylate 10 Mg Tablet 10 Mg PO DAILY Lisinopril 10 Mg Tablet 10 Mg PO DAILY Seroquel (Quetiapine Fumarate) 50 Mg Tablet 50 Mg PO QHS Rivastigmine (Rivastigmine Tartrate) 3 Mg Capsule 3 Mg PO BID MAIKEL CHAPMAN MD August 02, 2016 21:05
--- NOTE | 2016-08-03 01:05 | PN ---
DATE: 07/31/2016 This is a late entry, 07/31/2016, covers the elements not covered in my initial note. The patient has been wandering, exit seeking, but not agitated and does redirect. REVIEW OF SYSTEMS: There are no CV, , pulmonary, eye, ENT system symptoms on review. Reliability poor. MENTAL STATUS EXAM: Oriented to herself. Insight, judgment, recent and remote memory, attention, concentration, fund of knowledge poor, consistent with her diagnosis mentioned in my initial note. PLAN: Continue psychotropics mentioned in my initial note as clinically indicated. MAN Patrice CHAPMAN MD DR: ARLINE/slim JOB#: [id number] / [id number]
--- NOTE | 2016-08-03 01:42 | PN ---
DATE: 08/01/2016 PSYCHIATRIC PROGRESS NOTE This is a late entry 08/01/2016 covers elements not covered in my initial note. The patient did well the previous evening fairly calm, compliant, very confused on 08/01/2016. REVIEW OF SYSTEMS: No CV, , pulmonary, eye, ENT system symptoms on review. Reliability poor. MENTAL STATUS EXAM: Oriented to herself. Insight, judgment, recent and remote memory, attention, concentration, fund of knowledge poor, consistent with her diagnosis mentioned in my initial note. PLAN: Continue psychotropics mentioned in my initial note. Adjust as clinically indicated. MAN Patrice CHAPMAN MD DR: ARLINE/slim JOB#: [id number] / [id number]
[2016-08-03 06:09] VITALS: BP 116/51
[2016-08-03] MEDS: GLIMEPIRIDE 1 MG TABLET PO SCH (08:47)
[2016-08-03] MEDS: RIVASTIGMINE 3 MG CAPSULE. PO SCH (08:48)
[2016-08-03] MEDS: SERTRALINE 50 MG TABLET. PO SCH (08:48)
[2016-08-03] MEDS: LISINOPRIL 10 MG TABLET PO SCH (08:48)
[2016-08-03] MEDS: risperiDONE ORAL 1 MG/ML 30ml BOTTLE. SL SCH (08:49)
[2016-08-03] MEDS: amLODIPine BESYLATE 10 MG TABLET PO SCH (08:50)
[2016-08-03 09:00] VITALS: BP 129/63
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
--- NOTE | 2016-08-04 22:58 | PN ---
DATE: 08/02/2016 PSYCHIATRIC PROGRESS NOTE This is a late entry for 08/02/2016, covers elements not covered in my initial note. SUBJECTIVE: Overall, the patient remains confused, but has been pleasant, cooperative. Easily redirects. REVIEW OF SYSTEMS: No CV, , pulmonary, eye system symptoms on review. MENTAL STATUS EXAM: Oriented to herself. Insight, judgment, recent and remote memory, attention, concentration, fund of knowledge poor, consistent with her diagnosis mentioned in my initial note. PLAN: Continue psychotropics. MAN Patrice CHAPMAN MD DR: ARLINE/slim JOB#: [id number] / [id number]
== END 2016-08-03 10:30 | DRG 884 ==
LOC: ER 17:52 → GEROPSY 20:34
PROVIDERS: ADMIT Psychiatry & Neurology Psychiatry; ATTEND Psychiatry & Neurology Psychiatry
DX: F01.51 Vascular dementia, unspecified severity, with behavioral disturbance (principal); E44.1 Mild protein-calorie malnutrition; F02.81 Dementia in other diseases classified elsewhere, unspecified severity, with behavioral disturbance; G30.9 Alzheimer's disease, unspecified; D64.9 Anemia, unspecified; N18.9 Chronic kidney disease, unspecified; I12.9 Hypertensive chronic kidney disease with stage 1 through stage 4 chronic kidney disease, or unspecified chronic kidney disease; E11.22 Type 2 diabetes mellitus with diabetic chronic kidney disease; E78.5 Hyperlipidemia, unspecified; F22 Delusional disorders; F32.9 Major depressive disorder, single episode, unspecified; F41.9 Anxiety disorder, unspecified; G47.00 Insomnia, unspecified; F63.9 Impulse disorder, unspecified; K21.9 Gastro-esophageal reflux disease without esophagitis; K22.70 Barrett's esophagus without dysplasia; Z68.21 Body mass index [BMI] 21.0-21.9, adult; Z79.899 Other long term (current) drug therapy; Z87.891 Personal history of nicotine dependence; Z90.710 Acquired absence of both cervix and uterus; Z91.19 Patient's noncompliance with other medical treatment and regimen; Z95.0 Presence of cardiac pacemaker
CPT/HCPCS: 36415; 80053; 80061; 81001; 82306; 82607; 82947; 83036; 83540; 83550; 83735; 84436; 84443; 84480; 85027; 86592; 86593; 87086; 93005; J3420; 99285-25